=== PATIENT | male | born 1955 | race Caucasian/White ===

== ENCOUNTER → 2016-05-11 | Outpatient (CLI) | payer MEDICARE, BC ==
[2015-04-16 03:21] VITALS: BP 120/80
--- NOTE | 2016-05-14 09:28 | EKG ---
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
== END | disposition home or self-care (01) ==
LOC: EKG 10:39
PROVIDERS: ATTEND Internal Medicine Cardiovascular Disease
DX: I48.0 Paroxysmal atrial fibrillation (principal)
CPT/HCPCS: 93225; 93226

== ENCOUNTER 2017-01-22 12:16 | Emergency (ER) | payer OTHER, MEDICARE, BC ==
[~2017-01-22 12:16] MED LIST: ALLO100T PO; CARV12.52 PO; DILT180C29 PO; DOCU100C20 PO; FURO20TA3 PO; LORA1TAB PO; LOSA50TA6 PO; POTA20TA4 PO; PROVENTIL HFA6.7 GM IH; RANI150T6 PO; WARF10TA6 PO; WARF5TAB7 PO
[2017-01-22] MEDS ORDERED: fentaNYL PF VIAL 100 MCG/2 ML VIAL IV PRN (12:45)
[2017-01-22] MEDS ORDERED: HYDROcodone/APAP 5/325MG 1 TAB TABLET PO ONE (12:45)
[2017-01-22] MEDS ORDERED: HYDROcodone/APAP 5/325MG 1 TAB TABLET ONE (12:50)
[2017-01-22 13:16] LABS: BASO # 0.1 x10^3/uL (0.0-0.2); BASO % 1 % (0-3); EOS % 2 % (0-3); HEMATOCRIT 51.1 % (39.0-53.0); HEMOGLOBIN 17.3 g/dL (13.0-17.5); LYMPH # 2.4 x10^3/uL (1.0-4.8); LYMPH % 20 % (24-48); MEAN CORPUSCULAR HEMOGLOBIN 34 pg (25-35); MEAN CORPUSCULAR HGB CONC 34 g/dL (31-37); MEAN CORPUSCULAR VOLUME 101 fL (79-100); MONO % 6 % (0-9); NEUT % 71 % (31-73); PLATELET COUNT 212 x10^3/uL (140-400); RED BLOOD COUNT 5.07 x10^6/uL (4.30-5.70); RED CELL DISTRIBUTION WIDTH 13.8 % (11.5-14.5); WHITE BLOOD COUNT 12.1 x10^3/uL (4.0-11.0)
--- NOTE | 2017-01-22 13:19 | EKG ---
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
[2017-01-22 13:26] LABS: CALCIUM 8.9 mg/dL (8.5-10.1); CREATININE 1.4 mg/dL (0.7-1.3); GFR 51.9; POTASSIUM 4.6 mmol/L (3.5-5.1)
[2017-01-22 13:32] LABS: ALBUMIN 3.5 g/dL (3.4-5.0); ALBUMIN/GLOBULIN RATIO 0.8 (1.0-1.7); TOTAL BILIRUBIN 0.6 mg/dL (0.2-1.0); TOTAL PROTEIN 7.7 g/dL (6.4-8.2)
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
[2017-01-22 15:00] VITALS: BP 134/77
== END 2017-01-22 15:06 | disposition home or self-care (01) ==
LOC: ER 12:16
DX: S09.90XA Unspecified injury of head, initial encounter (principal); M54.2 Cervicalgia; R07.89 Other chest pain; M54.5 Low back pain; M54.6 Pain in thoracic spine; M25.531 Pain in right wrist; I11.0 Hypertensive heart disease with heart failure; I50.9 Heart failure, unspecified; I48.91 Unspecified atrial fibrillation; J44.9 Chronic obstructive pulmonary disease, unspecified; Z95.0 Presence of cardiac pacemaker; Z95.828 Presence of other vascular implants and grafts; Z79.01 Long term (current) use of anticoagulants; Z88.8 Allergy status to other drugs, medicaments and biological substances; V59.40XA Driver of pick-up truck or van injured in collision with unspecified motor vehicles in traffic accident, initial encounter; Y93.I9 Activity, other involving external motion; Y92.410 Unspecified street and highway as the place of occurrence of the external cause; Y99.8 Other external cause status
CPT/HCPCS: 36415; 70450; 71010; 72072; 72100; 72125; 73110; 80053; 84484; 85025; 93005; 99285-25

== ENCOUNTER → 2018-09-12 | Outpatient (CLI) | payer MEDICARE, BC ==
[~2018-09-12] MED LIST changes: +ALBU2.5V8 IH; +CARV12.511 PO; -CARV12.52 PO; +DOCU-159 PO; -DOCU100C20 PO; +LOSA-73 PO; -LOSA50TA6 PO; -PROVENTIL HFA6.7 GM IH; +RANI-376 PO; -RANI150T6 PO; +WARF-31 PO; +WARF10TA40 PO; -WARF10TA6 PO; -WARF5TAB7 PO
--- NOTE | 2018-09-12 12:39 | CARD ---
MR#: [id number] Date of Study: 09/12/2018 Ordering Physician: LALITHA SIERRA, Referring Physician: LALITHA SIERRA, Tech: Britt Tabor RD APPROVED REPORT EXAM: Two-dimensional and M-mode echocardiogram with Doppler and color Doppler. Other Information Quality : Fair Rhythm : Atrial Fibrillation INDICATION Dyspnea Pacemaker 2D DIMENSIONS RVDd2.6 (2.9-3.5cm)Left Atrium(2D)4.2 (1.6-4.0cm) IVSd0.9 (0.7-1.1cm)Aortic Root(2D)2.8 (2.0-3.7cm) LVDd5.5 (3.9-5.9cm)LVOT Diameter2.4 (1.8-2.4cm) PWd1.0 (0.7-1.1cm)LVDs3.9 (2.5-4.0cm) FS (%) 28.7 %SV80.4 ml LVEF(%)54.7 (>50%) Aortic Valve AoV Peak James.117.9cm/sAoV VTI19.5cm AO Peak GR.5.6mmHgLVOT Peak James.97.4cm/s LVOT VTI 18.71cmAO Mean GR.4mmHg RAIMUNDO (VMAX)3.48nu8KTC (VTI)4.34cm2 Mitral Valve MV E Rizpypvk63.5cm/sMV DECEL WRJN732vs MV EAX76xwBTV (PHT)4.29cm2 TDI E/Lateral E'21.7E/Medial E'20.1 Tricuspid Valve TR P. Uwihczrk947ik/sRAP TQPVOHAC1paVx TR Peak Gr.34qtEvARFU24bgAd Pulmonary Vein S1 [place]irk06.1cm/sD2 Lpnyxykf68.7cm/s LEFT VENTRICLE The left ventricle is normal size. There is normal left ventricular wall thickness. Left ventricle sy stolic function is low normal. The Ejection Fraction is 50-55%. There is normal LV segmental wall mot ion. RIGHT VENTRICLE The right ventricle is normal size. The right ventricular systolic function is normal. There are prob able device leads in the right ventricle and atria. ATRIA The left atrium is mildly dilated. The right atrium is mildly dilated. The interatrial septum is inta ct with no evidence for an atrial septal defect or patent foramen ovale as noted on 2-D or Doppler im aging. AORTIC VALVE The aortic valve is calcified but opens well. Doppler and Color Flow revealed no significant aortic r egurgitation. There is no significant aortic valvular stenosis. MITRAL VALVE The mitral valve is calcified but opens well. There is no evidence of mitral valve prolapse. There is no mitral valve stenosis. Doppler and Color-flow revealed mild mitral regurgitation. TRICUSPID VALVE The tricuspid valve is normal in structure and function. Doppler and Color Flow revealed trace to mil d tricuspid regurgitation. The PA pressure was estimated at 29 mmHg. There is no tricuspid valve sten osis. PULMONIC VALVE The pulmonic valve is not well visualized. Doppler and Color Flow revealed no pulmonic valvular regur gitation. There is no pulmonic valvular stenosis. GREAT VESSELS The aortic root is normal in size. The ascending aorta is mildly dilated at 3.6 cm. The IVC is normal in size and collapses >50% with inspiration. PERICARDIAL EFFUSION There is no evidence of significant pericardial effusion. Critical Notification Critical Value: No <Conclusion> The left ventricle is normal size. Left ventricle systolic function is low normal. The Ejection Fraction is 50-55%. There are probable device leads in the right ventricle and atria. There is no significant aortic valvular stenosis. Doppler and Color Flow revealed no significant aortic regurgitation. Doppler and Color-flow revealed mild mitral regurgitation. Doppler and Color Flow revealed trace to mild tricuspid regurgitation. The PA pressure was estimated at 29 mmHg. The ascending aorta is mildly dilated at 3.6 cm. Signed by : Lalitha Sierra MD Electronically Approved : 09/12/2018 12:39:14
== END | disposition home or self-care (01) ==
LOC: ECHO 10:47
PROVIDERS: ATTEND Internal Medicine Cardiovascular Disease
DX: I08.3 Combined rheumatic disorders of mitral, aortic and tricuspid valves (principal); I48.91 Unspecified atrial fibrillation; Z95.0 Presence of cardiac pacemaker
CPT/HCPCS: 93306

== ENCOUNTER → 2019-05-04 | Outpatient (CLI) | payer MEDICARE, BC ==
[~2019-05-04] MED LIST changes: -ALBU2.5V8 IH; +PROVENTIL HFA6.7 GM IH
--- NOTE | 2019-05-04 11:47 | RAD ---
CHEST PA LATERAL History: COPD, shortness of breath Comparison: 01/22/2017 AP view of the chest. Findings: Frontal and lateral views of chest were obtained. Single lead left-sided pacemaker is present. The cardiomediastinal silhouette is normal. Pulmonary vasculature is normal. The lungs are clear. Mild diffuse interstitial thickening of the lung mclean similar to the previous exam. No pleural effusion or pneumothorax is seen. There is no acute bone abnormality. Upper abdominal surgical clips are present. IMPRESSION: No focal infiltrate no significant change. Electronically signed by: Boogie Saavedra MD (05/04/2019 11:44 AM) [facility]
== END | disposition home or self-care (01) ==
LOC: RAD 10:11
PROVIDERS: ATTEND Internal Medicine Pulmonary Disease
DX: J44.9 Chronic obstructive pulmonary disease, unspecified (principal); Z95.0 Presence of cardiac pacemaker
CPT/HCPCS: 71046

== ENCOUNTER 2019-09-02 02:42 | Emergency (ER) | payer MEDICARE, BC ==
[~2019-09-02] VITALS: Ht 185.4 cm; Wt 148.0 kg
[2019-09-02] MEDS ORDERED: PRED20TA PO (03:26)
[2019-09-02] MEDS ORDERED: AZIT250T PO (03:26)
[2019-09-02] MEDS ORDERED: BENZ100C PO (03:26)
--- NOTE | 2019-09-02 03:26 | PHYS DOC ---
Past Medical History Past Medical History: CHF, COPD, Hypertension Past Surgical History: Appendectomy, Cholecystectomy, Pacemaker, Other Additional Past Surgical Histo: IVC FILTER Smoking Status: Current Every Day Smoker Alcohol Use: Sober Drug Use: None General Adult EDM: Chief Complaint: COUGH HPI: HPI: Patient is a 64 year old [f__sex] who presents with [] Review of Systems: Review of Systems: Constitutional: Denies fever or chills. [] Eyes: Denies change in visual acuity. [] HENT: Denies nasal congestion or sore throat. [] Respiratory: Denies cough or shortness of breath. [] Cardiovascular: Denies chest pain or edema. [] GI: Denies abdominal pain, nausea, vomiting, bloody stools or diarrhea. [] : Denies dysuria. [] Musculoskeletal: Denies back pain or joint pain. [] Integument: Denies rash. [] Neurologic: Denies headache, focal weakness or sensory changes. [] Endocrine: Denies polyuria or polydipsia. [] Lymphatic: Denies swollen glands. [] Psychiatric: Denies depression or anxiety. [] Heart Score: Risk Factors: Risk Factors: DM, Current or recent (<one month) smoker, HTN, HLP, family history of CAD, obesity. Risk Scores: Score 0 - 3: 2.5% MACE over next 6 weeks - Discharge Home Score 4 - 6: 20.3% MACE over next 6 weeks - Admit for Clinical Observation Score 7 - 10: 72.7% MACE over next 6 weeks - Early Invasive Strategies Current Medications: Current Medications Medications (Trade) Dose Ordered Sig/[facility] Start Time Stop Time Status Last Admin Dose Admin Dexamethasone (Decadron) 10 mg 1X ONCE 09/02/19 03:30 09/02/19 03:31 09/02/19 03:00 10 MG Allergies: Allergies: Allergies Coded Allergies Type Severity Reaction Last Updated Verified buprenorphine Allergy Intermediate 09/02/19 Yes Physical Exam: PE: Constitutional: Well developed, well nourished, no acute distress, non-toxic appearance. [] HENT: Normocephalic, atraumatic, bilateral external ears normal, oropharynx moist, no oral exudates, nose normal. [] Eyes: PERRLA, EOMI, conjunctiva normal, no discharge. [] Neck: Normal range of motion, no tenderness, supple, no stridor. [] Cardiovascular:Heart rate regular rhythm, no murmur [] Lungs & Thorax: Bilateral breath sounds clear to auscultation [] Abdomen: Bowel sounds normal, soft, no tenderness, no masses, no pulsatile masses. [] Skin: Warm, dry, no erythema, no rash. [] Back: No tenderness, no CVA tenderness. [] Extremities: No tenderness, no cyanosis, no clubbing, ROM intact, no edema. [] Neurologic: Alert and oriented X 3, normal motor function, normal sensory function, no focal deficits noted. [] Psychologic: Affect normal, judgement normal, mood normal. [] EKG: EKG: [] Radiology/Procedures: Radiology/Procedures: [] Course & Med Decision Making: Course & Med Decision Making Pertinent Labs and Imaging studies reviewed. (See chart for details) [] Dragon Disclaimer: Dragon Disclaimer: This electronic medical record was generated, in whole or in part, using a voice recognition dictation system. Departure Departure Impression: Primary Impression: Bronchitis Disposition: 01 HOME, SELF-CARE Condition: STABLE Referrals: ANGEL MULLINS MD (PCP) ANGIE PARK MD Patient Instructions: Acute Bronchitis, Wkmf-hw-[id number] Additional Instructions: Hold antibiotics for 48 hours. If symptoms worsen or for fever > 100.3 F after 48 hours then start antibiotics as prescribed. Scripts Benzonatate (TESSALON PERLE) 100 Mg Capsule 100 MG PO TID PRN for COUGH, #20 CAP Prov: ANAID DONOVAN DO 09/02/19 Prednisone (PREDNISONE) 20 Mg Tablet 2 TAB PO DAILY, #8 TAB Start this prescription tomorrow, Wednesday09/03/19 Prov: ANAID DONOVAN DO 09/02/19 Azithromycin (ZITHROMAX) 250 Mg Tablet 1 PKG PO UD for bronchitis, #6 TAB Take 2 tablets on day 1 and then 1 tablet each day for the next 4 days as directed Prov: ANAID DONOVAN DO 09/02/19 Justicifation of Admission Dx: Justifications for Admission: Justification of Admission Dx: N/A ANAID DONOVAN DO Sep 02, 2019 03:26
[2019-09-02] MEDS ORDERED: DEXAMETHASONE 4 MG TABLET PO ONE (03:30)
[2019-09-02] MEDS ORDERED: LIDO:MAALOX 1:1 20 ML SINGLE DOSE. PO ONE (03:45)
[2019-09-02 03:49] VITALS: BP 184/71
--- NOTE | 2019-09-02 04:11 | RAD ---
EXAM: CHEST ONE VIEW. HISTORY: Cough. COMPARISON: 05/04/2019. FINDINGS: A frontal view of the chest is obtained. A left-sided pacemaker has its lead in the right ventricle. There are no confluent infiltrates. There is no pneumothorax or pleural effusion. The heart is not enlarged. IMPRESSION: 1. No confluent infiltrates. Electronically signed by: Farida Salamanca MD (09/02/2019 4:08 AM) [facility]
== END 2019-09-02 04:04 | disposition home or self-care (01) ==
LOC: ER 02:42
DX: J44.9 Chronic obstructive pulmonary disease, unspecified (principal); I11.0 Hypertensive heart disease with heart failure; I50.9 Heart failure, unspecified; F17.200 Nicotine dependence, unspecified, uncomplicated; Z95.0 Presence of cardiac pacemaker; Z88.8 Allergy status to other drugs, medicaments and biological substances
CPT/HCPCS: 71045; 96372; 99284; J2060; J8540

== ENCOUNTER 2019-09-18 11:45 | Inpatient (IN) | payer MEDICARE, BC ==
[~2019-09-18] VITALS: Ht 185.4 cm; Wt 142.8 kg
[~2019-09-18 11:45] MED LIST changes: +AZIT250T PO; +BENZ100C PO; +PRED20TA PO
[2019-09-18] MEDS ORDERED: fentaNYL PF VIAL 100 MCG/2 ML VIAL IVP ONE (14:15)
--- NOTE | 2019-09-18 14:25 | RAD ---
AP chest. HISTORY: Flank pain, nausea, short of air AP view was taken of the chest. Lungs are clear. Heart is normal in size. There is no effusion. Left pacemaker is unchanged. IMPRESSION: 1. No acute chest disease. Electronically signed by: Bryon Gonzalez MD (09/18/2019 2:22 PM) [facility]
--- NOTE | 2019-09-18 14:31 | RAD ---
PQRS Compliance Statement: One or more of the following individualized dose reduction techniques were utilized for this examination: 1. Automated exposure control 2. Adjustment of the mA and/or kV according to patient size 3. Use of iterative reconstruction technique CT abdomen/pelvis without contrast 09/18/2019 1:59 PM INDICATION: Flank pain COMPARISON: CT abdomen/pelvis 12/07/2012 TECHNIQUE: Multiple axial CT images of the abdomen and pelvis were obtained without intravenous contrast. Coronal and sagittal reformats are provided. FINDINGS: Lung bases are clear. Heart size within normal limits. Right pacer wires are partially profiled. Evaluation of solid abdominal viscera is limited by lack of intravenous contrast. Liver, spleen, bilateral adrenal glands and pancreas are normal in appearance. Gallbladder surgically absent. Normal aorta is normal in course and caliber with mild calcified atheromatous plaque. 2.7 x 2.3 cm renal lesion in the lateral and flow left kidney has attenuation higher than that of simple fluid. 10 cm x 9.7 cm hypoattenuating lesion in the lateral interpolar right kidney may represent a cyst although density appears head that of simple fluid. Is a fat-containing lesion in inferior pole the right kidney measuring 12 mm suggestive of angiomyolipoma. There is hazy attenuation within the right retroperitoneum which does course along the right ureter. There is ill-definition along the right psoas musculature. There is mild bladder wall thickening and pericystic inflammatory changes. Minimal presacral edema. Small and large bowel are normal in caliber. There is no evidence for bowel obstruction. There are no pericolonic inflammatory changes. Appendix is not definitively visualized. No pericecal inflammatory changes are identified. Bilateral flank edema is identified. No definite hydronephrosis. IVC filter is present. No suspicious osseous abnormality. Small fat-containing left inguinal hernia. Prostate and seminal vesicles appear normal. IMPRESSION: 1. Ill-defined retroperitoneal soft tissue formation involving the lower abdomen and right hemipelvis. Findings could be associated with right-sided pyelitis. [place] inflammation. Resultant similar appearance although there is no iliopsoas fluid collection. IVC filter is present and thrombophlebitis is a consideration although inflammation is more anterior to the IVC. Consideration may be given for postcontrast imaging. Correlate with urinalysis. 2. There is a indeterminate lateral interpolar left renal lesion measuring 2.7 x 2.3 cm. Renal mass protocol CT could be of benefit versus renal ultrasound. Hypoattenuating lesion in the lateral interpolar to superior right kidney measuring 10 cm most favors a simple cyst. Suspect an angiomyolipoma in inferior pole the right kidney measuring 12 mm. Electronically signed by: Vanna Courtney MD (09/18/2019 2:29 PM) [facility]
[2019-09-18] MEDS ORDERED: ONDANSETRON PF 4 MG/2 ML VIAL. ONE (14:42)
[2019-09-18 15:42] LABS: BILIRUBIN,URINE SMALL (NEG); CLARITY,URINE CLEAR; COLOR,URINE ORANGE; NITRITE,URINE NEGATIVE (NEG); PH,URINE 5.5 (<5.0-8.0); PROTEIN,URINE 100 mg/dL (NEG-TRACE)
[2019-09-18 15:48] LABS: BASO # 0.1 x10^3/uL (0.0-0.2); BASO % 1 % (0-3); EOS # 1.3 x10^3/uL (0.0-0.7); EOS % 11 % (0-3); HEMOGLOBIN 16.2 g/dL (13.0-17.5); LYMPH # 1.4 x10^3/uL (1.0-4.8); LYMPH % 12 % (24-48); MEAN CORPUSCULAR HEMOGLOBIN 35 pg (25-35); MEAN CORPUSCULAR HGB CONC 35 g/dL (31-37); MEAN CORPUSCULAR VOLUME 100 fL (79-100); MONO # 0.7 x10^3/uL (0.0-1.1); MONO % 6 % (0-9); NEUT # 8.1 x10^3/uL (1.8-7.7); NEUT % 71 % (31-73); PLATELET COUNT 173 x10^3/uL (140-400); WHITE BLOOD COUNT 11.5 x10^3/uL (4.0-11.0)
[2019-09-18 15:52] LABS: BACTERIA,URINE 0 /HPF (0-FEW); HYALINE CASTS, URINE FEW /HPF; PROTHROMBIN TIME PATIENT 18.1 SEC (11.7-14.0); RBC,URINE 0 /HPF (0-2); WBC,URINE RARE /HPF (0-4)
[2019-09-18 15:56] LABS: ALBUMIN 3.7 g/dL (3.4-5.0); DIRECT BILIRUBIN 0.4 mg/dL (0.0-0.2); TOTAL BILIRUBIN 1.3 mg/dL (0.2-1.0); TOTAL PROTEIN 7.9 g/dL (6.4-8.2)
--- NOTE | 2019-09-18 16:05 | RAD ---
Examination: Bilateral Lower Extremity Venous Doppler Ultrasound History: Bilateral lower extremity swelling Comparison: None Procedure: Damon scale, color flow 2D and spectal waveform analysis images are obtained with and without compression in the area of the common femoral vein, superficial femoral vein - femoral vein junction, main femoral vein (superficial femoral vein) and popliteal vein. Veins of the proximal calf are also imaged. Findings: Occlusive echogenicity identified in the right common femoral vein, superficial femoral and right popliteal vein likely deep venous thrombosis. There is nonoccluding echogenicity identified in the left superficial femoral vein from the mid and distal portion extending into the left popliteal vein likely deep venous thrombosis. Impression: 1. Bilateral deep venous thrombosis as described above. Findings called to [facility] at 09/18/2019 4:02 PM. Electronically signed by: Ruddy dAorno MD (09/18/2019 4:02 PM) [id number]
[2019-09-18 16:10] LABS: % EOS 13 % (0-5); % LYMPHS 17 % (24-48); % MONOS 3 % (0-10); % SEGS 67 % (35-66); PLT ESTIMATE ADEQUATE (ADEQUATE)
[2019-09-18 16:40] LABS: CALCIUM 8.7 mg/dL (8.5-10.1); CREATININE 1.7 mg/dL (0.7-1.3); POTASSIUM 5.6 mmol/L (3.5-5.1)
[2019-09-18] MEDS ORDERED: ONDANSETRON PF 4 MG/2 ML VIAL. IV PRN ×2 (16:45→22:00)
[2019-09-18] MEDS ORDERED: HEPARIN for IV BOLUS 10,000 UNIT/10 ML VIAL. IV PRN ×2 (17:00)
--- NOTE | 2019-09-18 17:05 | PHYS DOC ---
Past Medical History Past Medical History: CHF, COPD, Hypertension Past Surgical History: Appendectomy, Cholecystectomy, Pacemaker, Other Additional Past Surgical Histo: IVC FILTER Smoking Status: Current Every Day Smoker Alcohol Use: None Drug Use: None General Adult EDM: Chief Complaint: GROIN PAIN HPI: HPI: Patient is a 64 year old male who presents with bilateral lower leg swelling and pain. See downtime paper charting. Review of Systems: Review of Systems: Constitutional: Denies fever or chills. [] Eyes: Denies change in visual acuity. [] HENT: Denies nasal congestion or sore throat. [] Respiratory: Denies cough or shortness of breath. [] Cardiovascular: Denies chest pain or edema. [] GI: Denies abdominal pain, nausea, vomiting, bloody stools or diarrhea. [] : Denies dysuria. [] Musculoskeletal: Denies back pain or joint pain. [] Integument: Denies rash. [] Neurologic: Denies headache, focal weakness or sensory changes. [] Endocrine: Denies polyuria or polydipsia. [] Lymphatic: Denies swollen glands. [] Psychiatric: Denies depression or anxiety. [] Heart Score: HEART Score for Chest Pain: HEART Score for Chest Pain Response (Comments) Value History Slighlty/Non-Suspicious 0 ECG Nonspecific Repolarizatio 1 Age >45 - < 65 1 Risk Factors >3 Risk Factors or Hx CAD 2 Troponin < Normal Limit 0 Total 4 Risk Factors: Risk Factors: DM, Current or recent (<one month) smoker, HTN, HLP, family history of CAD, obesity. Risk Scores: Score 0 - 3: 2.5% MACE over next 6 weeks - Discharge Home Score 4 - 6: 20.3% MACE over next 6 weeks - Admit for Clinical Observation Score 7 - 10: 72.7% MACE over next 6 weeks - Early Invasive Strategies Current Medications: Current Medications Medications (Trade) Dose Ordered Sig/Félix Start Time Stop Time Status Last Admin Dose Admin Fentanyl Citrate (Fentanyl 2ml Vial) 50 mcg PRN Q1HR PRN 09/18/19 16:45 09/19/19 16:44 Heparin Sodium (Porcine) (Heparin Sodium) 2,150 unit PRN Q6HRS PRN 09/18/19 17:00 Heparin Sodium/ Dextrose 250 ml @ 20 mls/hr CONT PRN 09/18/19 17:00 Ondansetron HCl (Zofran) 4 mg PRN Q8HRS PRN 09/18/19 16:45 09/19/19 16:44 Allergies: Allergies: Allergies Coded Allergies Type Severity Reaction Last Updated Verified buprenorphine Allergy Intermediate 09/02/19 Yes Physical Exam: PE: Constitutional: Well developed, well nourished, no acute distress, non-toxic appearance. [] HENT: Normocephalic, atraumatic, bilateral external ears normal, oropharynx moist, no oral exudates, nose normal. [] Eyes: PERRLA, EOMI, conjunctiva normal, no discharge. [] Neck: Normal range of motion, no tenderness, supple, no stridor. [] Cardiovascular:Heart rate regular rhythm, no murmur [] Lungs & Thorax: Bilateral breath sounds clear to auscultation [] Abdomen: Bowel sounds normal, soft, no tenderness, no masses, no pulsatile masses. [] Skin: Warm, dry, no erythema, no rash. [] Back: No tenderness, no CVA tenderness. [] Extremities: No tenderness, no cyanosis, no clubbing, ROM intact, no edema. [] Neurologic: Alert and oriented X 3, normal motor function, normal sensory function, no focal deficits noted. [] Psychologic: Affect normal, judgement normal, mood normal. [] Current Patient Data: Labs: Laboratory Tests Test 09/18/19 13:50 White Blood Count 11.5 x10^3/uL (4.0-11.0) H Red Blood Count 4.60 x10^6/uL (4.30-5.70) Hemoglobin 16.2 g/dL (13.0-17.5) Hematocrit 46.0 % (39.0-53.0) Mean Corpuscular Volume 100 fL (79-100) Mean Corpuscular Hemoglobin 35 pg (25-35) Mean Corpuscular Hemoglobin Concent 35 g/dL (31-37) Red Cell Distribution Width 14.0 % (11.5-14.5) Platelet Count 173 x10^3/uL (140-400) Neutrophils (%) (Auto) 71 % (31-73) Lymphocytes (%) (Auto) 12 % (24-48) L Monocytes (%) (Auto) 6 % (0-9) Eosinophils (%) (Auto) 11 % (0-3) H Basophils (%) (Auto) 1 % (0-3) Neutrophils # (Auto) 8.1 x10^3/uL (1.8-7.7) H Lymphocytes # (Auto) 1.4 x10^3/uL (1.0-4.8) Monocytes # (Auto) 0.7 x10^3/uL (0.0-1.1) Eosinophils # (Auto) 1.3 x10^3/uL (0.0-0.7) H Basophils # (Auto) 0.1 x10^3/uL (0.0-0.2) Segmented Neutrophils % 67 % (35-66) H Lymphocytes % 17 % (24-48) L Monocytes % 3 % (0-10) Eosinophils % 13 % (0-5) H Platelet Estimate Adequate (ADEQUATE) Prothrombin Time 18.1 SEC (11.7-14.0) H Prothrombin Time INR 1.5 (0.8-1.1) H Activated Partial Thromboplast Time 35 SEC (24-38) Urine Collection Type Unknown Urine Color Rich Urine Clarity Clear Urine pH 5.5 (<5.0-8.0) Urine Specific [place] 1.025 (1.000-1.030) Urine Protein 100 mg/dL (NEG-TRACE) Urine Glucose (UA) 250 mg/dL (NEG) Urine Ketones (Stick) Trace mg/dL (NEG) Urine Blood Negative (NEG) Urine Nitrite Negative (NEG) Urine Bilirubin Small (NEG) Urine Urobilinogen Dipstick 1.0 mg/dL (0.2 mg/dL) Urine Leukocyte Esterase Trace (NEG) Urine RBC 0 /HPF (0-2) Urine WBC Rare /HPF (0-4) Urine Bacteria 0 /HPF (0-FEW) Urine Hyaline Casts Few /HPF Urine Mucus Mod /LPF Total Bilirubin 1.3 mg/dL (0.2-1.0) H Direct Bilirubin 0.4 mg/dL (0.0-0.2) H Aspartate Amino Transferase (AST) 17 U/L (15-37) Alanine Aminotransferase (ALT) 28 U/L (16-63) Alkaline Phosphatase 101 U/L (46-116) Troponin I Quantitative < 0.017 ng/mL (0.000-0.055) KS-Ryp-Y-Type Natriuretic Peptide 783 pg/mL (0-124) H Total Protein 7.9 g/dL (6.4-8.2) Albumin 3.7 g/dL (3.4-5.0) Lipase 110 U/L (73-393) Laboratory Tests 09/18/19 13:50 Vital Signs: Vital Signs Date Time Temp Pulse Resp B/P (MAP) Pulse Ox O2 Delivery O2 Flow Rate FiO2 09/18/19 14:47 18 97 Room Air 09/18/19 13:25 98.3 102 138/83 (101) 98.3 EKG: EKG: [] Radiology/Procedures: Radiology/Procedures: [] Course & Med Decision Making: Course & Med Decision Making Pertinent Labs and Imaging studies reviewed. (See chart for details) See paper charting. [] Dragon Disclaimer: Dragon Disclaimer: This electronic medical record was generated, in whole or in part, using a voice recognition dictation system. Departure Departure Impression: Primary Impression: DVT, bilateral lower limbs Qualified Codes: I82.403 - Acute embolism and thrombosis of unspecified deep veins of lower extremity, bilateral Disposition: ADMITTED INPATIENT Admitting Physician: BERT Condition: STABLE Referrals: ANGEL MULLINS MD (PCP) Justicifation of Admission Dx: Justifications for Admission: Justification of Admission Dx: Yes Comments: dvt NANDA MENDOZA [employer] Sep 18, 2019 17:05
--- NOTE | 2019-09-18 17:09 | PDOC1 ---
History and Physical Date of Admission Date of Admission DATE: 09/18/19 TIME: 17:06 Identification/Chief Complaint Chief Complaint Leg swelling Source Source: Patient History of Present Illness History of Present Illness Mr Gruber is a 64yo M [employer] with PMHx HTN, CHF, COPD, smoker, DVT s/p IVC filter in 1990 on chronic coumadin who comes into ED today c/o bilateral LE edema that has been progressive over the past month. He also notes over the past 7 days he has been developing right leg and groin pain with some right flank pain as well. Rates his pain 10/10. No fever/chills. No recent sick contacts. He notes he has had INR 1.3-1.5 and is "working on it" with his PCP to have therapeutic INR, previously on 10mg 4 days per week and 15mg coumadin 3 days per week now on 5mg daily. He also notes he has been trying to quit smoking for the past 4 months on chantix, but still continues to smoke. Bilateral LE US reveals extensive bilateral DVTs. CT abdomen/pelvis shows bladder wall inflammation and right sided pyelitis, also with ill-defined bilateral renal lesions. UA with small leukocyte esterase, glucose. CXR clear Labs significant for Na 131, K 5.6, BUN 27, Cr 1.7, glucose 205, INR 1.5, bilirubin 1.3. BNP 783, troponin negative. EKG with prolonged [place] interval, sinus compared to prior Afib in 2017. Admitted for further care Past Medical History Cardiovascular: AFIB, CHF, HTN, Syncope Pulmonary: COPD Past Surgical History Past Surgical History: Pacemaker, Appendectomy, Cholecystectomy, Other (IVC filter) Family History Family History: High Cholestrol, Hypertension Social History Smoke: 1 pack per day ALCOHOL: none Drugs: None Current Problem List Problem List Problems Medical Problems: (1) DVT, bilateral lower limbs Status: Acute Current Medications Current Medications Current Medications Fentanyl Citrate (Fentanyl 2ml Vial) 50 mcg 1X ONCE IVP Last administered on 09/18/19at 14:47; Start 09/18/19 at 14:15; Stop 09/18/19 at 14:22; Status DC Ondansetron HCl (Zofran) 4 mg STK-MED ONCE .ROUTE ; Start 09/18/19 at 14:42; Stop 09/18/19 at 14:42; Status DC Heparin Sodium (Porcine) (Heparin Sodium) 10,000 unit 1X ONCE IV ; Start 09/18/19 at 19:45; Stop 09/18/19 at 19:46 Heparin Sodium/ Dextrose 250 ml @ 20 mls/hr CONT PRN IV PER PROTOCOL; Start 09/18/19 at 17:00 Heparin Sodium (Porcine) (Heparin Sodium) 4,250 unit PRN Q6HRS PRN IV FOR UFH LEVEL LESS THAN 0.2; Start 09/18/19 at 17:00 Heparin Sodium (Porcine) (Heparin Sodium) 2,150 unit PRN Q6HRS PRN IV FOR UFH LEVEL 0.2 - 0.29; Start 09/18/19 at 17:00 Ondansetron HCl (Zofran) 4 mg PRN Q8HRS PRN IV NAUSEA/VOMITING; Start 09/18/19 at 16:45; Stop 09/19/19 at 16:44 Fentanyl Citrate (Fentanyl 2ml Vial) 50 mcg PRN Q1HR PRN IV PAIN; Start 09/18/19 at 16:45; Stop 09/19/19 at 16:44 Active Scripts Active Tessalon Perle (Benzonatate) 100 Mg Capsule 100 Mg PO TID PRN Prednisone 20 Mg Tablet 2 Tab PO DAILY Start this prescription tomorrow, Wednesday09/03/19 Zithromax (Azithromycin) 250 Mg Tablet 1 Pkg PO UD Take 2 tablets on day 1 and then 1 tablet each day for the next 4 days as directed Reported Carvedilol (Carvedilol) 12.5 Mg Tablet 1 Tab PO BID Losartan Potassium 50 Mg Tablet 50 Mg PO DAILY Klor-Con M20 (Potassium Chloride) 20 Meq Tab.er.prt 1 Tab PO 3X/WEEK Furosemide 20 Mg Tablet 1 Tab PO 3X/WEEK Warfarin Sodium 10 Mg Tablet 10 Mg PO WEEKLY 5 Days Warfarin Sodium 5 Mg Tablet 1 Tab PO TWICE WEEKLY Diltiazem 24HR Cd (Diltiazem Hcl) 180 Mg Cap.er.24h 2 Cap PO DAILY Proventil Hfa Inhaler (Albuterol Sulfate) 6.7 Gm Hfa.aer.ad 2 Puff IH DAILY PRN Doc-Q-Lace (Docusate Sodium) 100 Mg Capsule 100 Mg PO DAILY PRN Zantac (Ranitidine Hcl) 150 Mg Tablet 1 Tab PO DAILY Lorazepam 1 Mg Tablet 1 Tab PO BID Allopurinol 100 Mg Tablet 1 Tab PO DAILY Allergies Allergies: Coded Allergies: buprenorphine (Verified Allergy, Intermediate, 09/02/19) ROS General: YES: Fatigue, Malaise; No: Chills, Night Sweats, Appetite, Other PSYCHOLOGICAL ROS: YES: Anxiety; No: Behavioral Disorder, Concentration difficultie, Decreased libido, Depression, Disorientation, Hallucinations, Hostility, Irritablity, Memory difficulties, Mood Swings, Obsessive thoughts, Physical abuse, Sexual abuse, Sleep disturbances, Suicidal ideation, Other Eyes: No Blurry vision, No Decreased vision, No Double vision, No Dry eyes, No Excessive tearing, No Eye Pain, No Itchy Eyes, No Loss of vision, No Photophobia, No Scotomata, No Uses contacts, No Uses glasses, No Other HEENT: No: Heacaches, Visual Changes, Hearing change, Nasal congestion, Nasal discharge, Oral lesions, Sinus pain, Sore Throat, Epistaxis, Sneezing, Snoring, Tinnitus, Vertigo, Vocal changes, Other ALLERGY AND IMMUNOLOGY: No: Hives, Insect Bite Sensitivity, Itchy/Watery Eyes, Nasal Congestion, Post Nasal Drip, Seasonal Allergies, Other Hematological and Lymphatic: YES: Blood Clots; No: Bleeding Problems, Blood Transfusions, Brusing, Night Sweats, Pallor, Swollen Lymph Nodes, Other ENDOCRINE: No: Breast Changes, Galactorrhea, Hair Pattern Changes, Hot Flashes, Malaise/lethargy, Mood Swings, Palpitations, Polydipsia/polyuria, Skin Changes, Temperature Intolerance, Unexpected Weight Changes, Other Breast: No New/Changing Breast Lumps, No Nipple changes, No Nipple discharge, No Other Respiratory: No: Cough, Hemoptysis, Orthopnea, Pleuritic Pain, Shortness of breath, SOB with excertion, Sputum Changes, Stridor, Tachypnea, Wheezing, Other Cardiovascular: yes Edema; No Chest Pain, No Palpitations, No Orthopnea, No Paroxysmal Noc. Dyspnea, No Lt Headedness, No Other Gastrointestinal: Yes Abdominal Pain; No Nausea, No Vomiting, No Diarrhea, No Constipation, No Melena, No Hematochezia, No Other Genitourinary: YES Dysuria; No Frequency, No Incontinence, No Hematuria, No Retention, No Discharge, No Urgency, No Pain, No Flank Pain, No Other, No , No , No , No , No , No , No Musculoskeletal: Yes Muscle Pain; No Gait Disturbance, No Joint Pain, No Joint Stiffness, No Joint Swelling, No Muscular Weakness, No Pain In:, No Swelling In:, No Other Neurological: No Behavorial Changes, No Bowel/Bladder ControlChng, No Confusi on, No Dizziness, No Gait Disturbance, No Headaches, No Impaired Coord/balance, No Memory Loss, No Numbness/Tingling, No Seizures, No Speech Problems, No Tremors, No Visual Changes, No Weakness, No Other Skin: Yes Rash; No Dry Skin, No Eczema, No Hair Changes, No Lumps, No Mole Changes, No Mottling, No Nail Changes, No Pruritus, No Skin Lesion Changes, No Other, No Acne Physical Exam General: Alert, Oriented X3, Cooperative, mild distress HEENT: Atraumatic, PERRLA, EOMI, Mucous membr. moist/pink Lungs: Other (Diffuse wheezes) Heart: S1S2, RRR, no thrills, no rubs Abdomen: Normal bowel sounds, Soft, No hepatosplenomegaly, No masses, Other (Right flank pain) Rectal Exam: not examined Extremities: No clubbing, No cyanosis, Normal pulses, Other (3+ edema bilaterally, tender swollen) Skin: Other (Stasis dermatitis bilateral LE) Neuro: Normal gait, Normal speech, Strength at 5/5 X4 ext, Normal tone, Sensation intact, Cranial nerves 3-12 NL, Reflexes 2+ Psych/Mental Status: Mental status NL, Mood NL Vitals Vitals Vital Signs Date Time Temp Pulse Resp B/P (MAP) Pulse Ox O2 Delivery O2 Flow Rate FiO2 09/18/19 14:47 18 97 Room Air 09/18/19 13:25 98.3 102 138/83 (101) 98.3 Labs Labs Laboratory Tests Test 09/18/19 13:50 White Blood Count 11.5 x10^3/uL (4.0-11.0) Red Blood Count 4.60 x10^6/uL (4.30-5.70) Hemoglobin 16.2 g/dL (13.0-17.5) Hematocrit 46.0 % (39.0-53.0) Mean Corpuscular Volume 100 fL (79-100) Mean Corpuscular Hemoglobin 35 pg (25-35) Mean Corpuscular Hemoglobin Concent 35 g/dL (31-37) Red Cell Distribution Width 14.0 % (11.5-14.5) Platelet Count 173 x10^3/uL (140-400) Neutrophils (%) (Auto) 71 % (31-73) Lymphocytes (%) (Auto) 12 % (24-48) Monocytes (%) (Auto) 6 % (0-9) Eosinophils (%) (Auto) 11 % (0-3) Basophils (%) (Auto) 1 % (0-3) Neutrophils # (Auto) 8.1 x10^3/uL (1.8-7.7) Lymphocytes # (Auto) 1.4 x10^3/uL (1.0-4.8) Monocytes # (Auto) 0.7 x10^3/uL (0.0-1.1) Eosinophils # (Auto) 1.3 x10^3/uL (0.0-0.7) Basophils # (Auto) 0.1 x10^3/uL (0.0-0.2) Segmented Neutrophils % 67 % (35-66) Lymphocytes % 17 % (24-48) Monocytes % 3 % (0-10) Eosinophils % 13 % (0-5) Platelet Estimate Adequate (ADEQUATE) Prothrombin Time 18.1 SEC (11.7-14.0) Prothromb Time International Ratio 1.5 (0.8-1.1) Activated Partial Thromboplast Time 35 SEC (24-38) Urine Collection Type Unknown Urine Color [place] Urine Clarity Clear Urine pH 5.5 (<5.0-8.0) Urine Specific [place] 1.025 (1.000-1.030) Urine Protein 100 mg/dL (NEG-TRACE) Urine Glucose (UA) 250 mg/dL (NEG) Urine Ketones (Stick) Trace mg/dL (NEG) Urine Blood Negative (NEG) Urine Nitrite Negative (NEG) Urine Bilirubin Small (NEG) Urine Urobilinogen Dipstick 1.0 mg/dL (0.2 mg/dL) Urine Leukocyte Esterase Trace (NEG) Urine RBC 0 /HPF (0-2) Urine WBC Rare /HPF (0-4) Urine Bacteria 0 /HPF (0-FEW) Urine Hyaline Casts Few /HPF Urine Mucus Mod /LPF Total Bilirubin 1.3 mg/dL (0.2-1.0) Direct Bilirubin 0.4 mg/dL (0.0-0.2) Aspartate Amino Transf (AST/SGOT) 17 U/L (15-37) Alanine Aminotransferase (ALT/SGPT) 28 U/L (16-63) Alkaline Phosphatase 101 U/L (46-116) Troponin I Quantitative < 0.017 ng/mL (0.000-0.055) NB-Lbf-Q-Type Natriuretic Peptide 783 pg/mL (0-124) Total Protein 7.9 g/dL (6.4-8.2) Albumin 3.7 g/dL (3.4-5.0) Lipase 110 U/L (73-393) Laboratory Tests Test 09/18/19 13:50 White Blood Count 11.5 x10^3/uL (4.0-11.0) Red Blood Count 4.60 x10^6/uL (4.30-5.70) Hemoglobin 16.2 g/dL (13.0-17.5) Hematocrit 46.0 % (39.0-53.0) Mean Corpuscular Volume 100 fL (79-100) Mean Corpuscular Hemoglobin 35 pg (25-35) Mean Corpuscular Hemoglobin Concent 35 g/dL (31-37) Red Cell Distribution Width 14.0 % (11.5-14.5) Platelet Count 173 x10^3/uL (140-400) Neutrophils (%) (Auto) 71 % (31-73) Lymphocytes (%) (Auto) 12 % (24-48) Monocytes (%) (Auto) 6 % (0-9) Eosinophils (%) (Auto) 11 % (0-3) Basophils (%) (Auto) 1 % (0-3) Neutrophils # (Auto) 8.1 x10^3/uL (1.8-7.7) Lymphocytes # (Auto) 1.4 x10^3/uL (1.0-4.8) Monocytes # (Auto) 0.7 x10^3/uL (0.0-1.1) Eosinophils # (Auto) 1.3 x10^3/uL (0.0-0.7) Basophils # (Auto) 0.1 x10^3/uL (0.0-0.2) Segmented Neutrophils % 67 % (35-66) Lymphocytes % 17 % (24-48) Monocytes % 3 % (0-10) Eosinophils % 13 % (0-5) Platelet Estimate Adequate (ADEQUATE) Prothrombin Time 18.1 SEC (11.7-14.0) Prothromb Time International Ratio 1.5 (0.8-1.1) Activated Partial Thromboplast Time 35 SEC (24-38) Urine Collection Type Unknown Urine Color [place] Urine Clarity Clear Urine pH 5.5 (<5.0-8.0) Urine Specific [place] 1.025 (1.000-1.030) Urine Protein 100 mg/dL (NEG-TRACE) Urine Glucose (UA) 250 mg/dL (NEG) Urine Ketones (Stick) Trace mg/dL (NEG) Urine Blood Negative (NEG) Urine Nitrite Negative (NEG) Urine Bilirubin Small (NEG) Urine Urobilinogen Dipstick 1.0 mg/dL (0.2 mg/dL) Urine Leukocyte Esterase Trace (NEG) Urine RBC 0 /HPF (0-2) Urine WBC Rare /HPF (0-4) Urine Bacteria 0 /HPF (0-FEW) Urine Hyaline Casts Few /HPF Urine Mucus Mod /LPF Total Bilirubin 1.3 mg/dL (0.2-1.0) Direct Bilirubin 0.4 mg/dL (0.0-0.2) Aspartate Amino Transf (AST/SGOT) 17 U/L (15-37) Alanine Aminotransferase (ALT/SGPT) 28 U/L (16-63) Alkaline Phosphatase 101 U/L (46-116) Troponin I Quantitative < 0.017 ng/mL (0.000-0.055) AE-Zls-H-Type Natriuretic Peptide 783 pg/mL (0-124) Total Protein 7.9 g/dL (6.4-8.2) Albumin 3.7 g/dL (3.4-5.0) Lipase 110 U/L (73-393) Images Images Bilateral Venous US Lower extremities: Occlusive echogenicity identified in the right common femoral vein, superficial femoral and right popliteal vein likely deep venous thrombosis. There is nonoccluding echogenicity identified in the left superficial femoral vein from the mid and distal portion extending into the left popliteal vein likely deep venous thrombosis. Impression: 1. Bilateral deep venous thrombosis as described above. CT abdomen/pelvis: Lung bases are clear. Heart size within normal limits. Right pacer wires are partially profiled. Evaluation of solid abdominal viscera is limited by lack of intravenous contrast. Liver, spleen, bilateral adrenal glands and pancreas are normal in appearance. Gallbladder surgically absent. Normal aorta is normal in course and caliber with mild calcified atheromatous plaque. 2.7 x 2.3 cm renal lesion in the lateral and flow left kidney has attenuation higher than that of simple fluid. 10 cm x 9.7 cm hypoattenuating lesion in the lateral interpolar right kidney may represent a cyst although density appears head that of simple fluid. Is a fat-containing lesion in inferior pole the right kidney measuring 12 mm suggestive of angiomyolipoma. There is hazy attenuation within the right retroperitoneum which does course along the right ureter. There is ill-definition along the right psoas musculature. There is mild bladder wall thickening and pericystic inflammatory changes. Minimal presacral edema. Small and large bowel are normal in caliber. There is no evidence for bowel obstruction. There are no pericolonic inflammatory changes. Appendix is not definitively visualized. No pericecal inflammatory changes are identified. Bilateral flank edema is identified. No definite hydronephrosis. IVC filter is present. No suspicious osseous abnormality. Small fat-containing left inguinal hernia. Prostate and seminal vesicles appear normal. IMPRESSION: 1. Ill-defined retroperitoneal soft tissue formation involving the lower abdomen and right hemipelvis. Findings could be associated with right-sided pyelitis. [place] inflammation. Resultant similar appearance although there is no iliops oas fluid collection. IVC filter is present and thrombophlebitis is a consideration although inflammation is more anterior to the IVC. Consideration may be given for postcontrast imaging. Correlate with urinalysis. 2. There is a indeterminate lateral interpolar left renal lesion measuring 2.7 x 2.3 cm. Renal mass protocol CT could be of benefit versus renal ultrasound. Hypoattenuating lesion in the lateral interpolar to superior right kidney measuring 10 cm most favors a simple cyst. Suspect an angiomyolipoma in inferior pole the right kidney measuring 12 mm. VTE Prophylaxis Ordered VTE Prophylaxis Devices: Contraindicated VTE Pharmacological Prophylaxi: Yes Assessment/Plan Assessment/Plan A/P: Bilateral lower extremity DVTs - with subtherapeutic INR, will start heparin GTT, bridge back on coumadin. Consult cardiology for h/o afib Hyponatremia - will give NSS. likely hypovolemic Hyperkalemia - will hydrate. Kayexelate RONIT - likely vasomotor nephropathy - has been treating LE edema as CHF, more likely venous stasis disease complicated by DVTs Pyelonephritis - with abnormal UA, abdominal pain, right flank pain, will give rocephin Bilateral LE edema - likely 2/2 DVTs H/o Atrial fibrillation - s/p PPM insertion. Sinus with long [place] currently. Cardiology consulted HTN - cont meds ? diastolic CHF - echo last September 2018 with no reduction in EF or increased pulmonary pressures. Will hydrate him for now as he is hypovolemic. COPD - prn nebs Smoker - failing chantix therapy. DVT s/p IVC filter in 1990 on chronic coumadin - subtherapeutic INR, will cont above therapy. Lifelong anticoagulation indicated given his prothrombotic state s/p IVC filter Lateral interpolar left renal lesion measuring 2.7 x 2.3 cm - will get renal US Hypoattenuating lesion in the lateral interpolar to superior right kidney measuring 10 cm most favors a simple cyst. Suspect an angiomyolipoma in inferior pole the right kidney measuring 12 mm. Hyperglycemia - will check A1c. FEN - Cardiac diet PPX - heparin, coumadin FULL CODE Dispo - inpatient 2 midnights. Justicifation of Admission Dx: Justifications for Admission: Justification of Admission Dx: Yes CHRIS GRANGER MD Sep 18, 2019 17:09
[2019-09-18 19:45] VITALS: BP 147/92
[2019-09-18] MEDS ORDERED: HEPARIN for IV BOLUS 10,000 UNIT/10 ML VIAL. IV ONE (19:45)
[2019-09-18] MEDS: HEPARIN 25,000UTS/250ML PREMIX 250 ML IV PRN (20:06)
[2019-09-18] MEDS: fentaNYL PF VIAL 100 MCG/2 ML VIAL IV PRN (20:10)
[2019-09-18] MEDS ORDERED: GABA-585 PO (20:46)
[2019-09-18] MEDS ORDERED: TRAM50TA PO (20:55)
[2019-09-18] MEDS ORDERED: ERGO2000 PO (20:55)
[2019-09-18] MEDS ORDERED: HYDR-2765 PO (20:55)
[2019-09-18] MEDS ORDERED: VARE1TAB21 PO (20:56)
[2019-09-18] MEDS ORDERED: WARF2.5T71 PO (21:04)
[2019-09-18] MEDS ORDERED: WARF-31 PO (21:04)
[2019-09-18] MEDS ORDERED: DOCUSATE SODIUM 100 MG CAPSULE. PO PRN (22:00)
[2019-09-18] MEDS ORDERED: NON FORMULARY ITEM (Albuterol Sulfate (Proventil Hfa Inhaler) 2 PUFF) IH PRN (22:00)
[2019-09-18] MEDS ORDERED: DEXTROSE 50% 25 GM / 50ML DISP.SYRIN. IV PRN (22:15)
[2019-09-18 23:00] VITALS: BP 150/90
[2019-09-18] MEDS ORDERED: IV NORMAL SALINE 1000ML BAG 1,000 ML IV ONE (23:00)
[2019-09-18] MEDS ORDERED: SODIUM POLYSTYRENE SULFON/SORB 15 GM/60 ML ORAL.SUSP. PO ONE (23:00)
[2019-09-18] MEDS ORDERED: WARFARIN 5 MG TABLET. PO SCH (23:00)
[2019-09-19] MEDS: NICOTINE 21MG PATCH. TD SCH ×2 (00:08→08:48)
[2019-09-19] MEDS: CARVEDILOL 12.5 MG TABLET. PO SCH ×3 (00:10→17:26)
[2019-09-19] MEDS: GABAPENTIN 100 MG CAPSULE. PO SCH ×3 (00:10→21:10)
[2019-09-19] MEDS: cefTRIAXone IV Push 1 GM VIAL. IVP SCH ×2 (00:26→21:16)
[2019-09-19] MEDS: ALBUTEROL SULFATE 2.5 MG/3 ML NEBU. NEB PRN (00:45)
[2019-09-19 02:08] LABS: CALCIUM 8.5 mg/dL (8.5-10.1); CREATININE 1.6 mg/dL (0.7-1.3); POTASSIUM 4.8 mmol/L (3.5-5.1)
[2019-09-19 02:14] LABS: PROTHROMBIN TIME PATIENT 18.5 SEC (11.7-14.0)
[2019-09-19 02:15] LABS: UNFRACTIONATED HEPARIN TESTING 0.73 IU/mL (0.30-0.70)
[2019-09-19 03:00] VITALS: BP 132/77
[2019-09-19] MEDS ORDERED: ANTI-COAG MONITOR BY PHARMACY. MC PRN (03:45)
--- NOTE | 2019-09-19 03:53 | NUR ---
Pharmacy Warfarin Dosing Note S:Pharmacy consulted to assist with anticoagulation therapy started with target INR: 2 -3 O:MARTIN MOSLEY is a 64 year old M with DVT/PE LABS: Last INR: 1.5 Last HGB: 16.2 Last HCT: 46 Last PLT: 173 Last dose of 5 mg given on at Previous Regimen: 5MG DAILY 2.5 MG WEDNESDAY Vitamin K given: N Drug Interaction Changes: Ongoing Drug Interactions: A:INR of 1.5 is below desired range. Target range for this patient is: 2 -3 P: Warfarin dose: 10 mg Now Bridge Therapy: Heparin Therapeutic Next INR due DAILY Pharmacy anticoagulation service will continue to follow. CANDY VERAS RPH, 09/19/19 [id number] Signed: 09/19/19 at 3 by CANDY VERAS RPH PHA
[2019-09-19] MEDS: traMADol 50 MG TABLET PO PRN ×2 (06:00→21:11)
[2019-09-19 07:00] VITALS: BP 169/79
[2019-09-19] MEDS: HEPARIN 25,000UTS/250ML PREMIX 250 ML IV PRN ×2 (07:04→18:05)
[2019-09-19] MEDS ORDERED: CARVEDILOL 12.5 MG TABLET. PO SCH (08:00)
--- NOTE | 2019-09-19 08:44 | EKG ---
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
[2019-09-19] MEDS: FAMOTIDINE 20 MG TABLET. PO SCH (08:48)
[2019-09-19] MEDS: BENZONATATE 100 MG CAPSULE. PO PRN ×2 (08:52→21:15)
[2019-09-19] MEDS: ALLOPURINOL 100 MG TABLET. PO SCH (09:00)
[2019-09-19] MEDS ORDERED: LOSARTAN POTASSIUM 50 MG TABLET. PO SCH (09:00)
[2019-09-19] MEDS: INSULIN LISPRO 300 UNITS/3 ML VIAL. SQ SCH ×4 (09:05→21:15)
[2019-09-19 11:00] VITALS: BP 156/98
--- NOTE | 2019-09-19 11:44 | PDOC ---
[employer] PROGRESS NOTE Chief Complaint Chief Complaint Lower extremity swelling with bilateral DVTs 29-year old IVC filter that might possibly be clogged? FIB, CHF, HTN, Syncope COPD Pacemaker, Appendectomy, Cholecystectomy History of Present Illness History of Present Illness 09/18/2021 Patient seen and examined He still has extensive edema and extensive venous stasis of both lower extremities I reviewed the chart extensively with his I called interventional radiology and ask for their input regarding the status of his IVC filter (Dr. Ferrera is going to give an opinion) Discussed with RN Discussed with cardiology nurse practitioner Vitals/I&O Vitals/I&O: Vital Signs Date Time Temp Pulse Resp B/P (MAP) Pulse Ox O2 Delivery O2 Flow Rate FiO2 09/19/19 11:00 98.3 74 20 156/98 (117) 96 Room Air 98.3 09/19/19 00:44 3.0 I & O 09/18/19 09/18/19 09/19/19 15:00 23:00 07:00 Intake Total 300 ml 400 ml Output Total 850 ml Balance 300 ml -450 ml Physical Exam General: Alert, Oriented X3, Cooperative, mild distress Abdomen: Normal bowel sounds, Soft, No hepatosplenomegaly, No masses, Other (Right flank pain) Extremities: Other (3+ edema bilaterally, tender swollen venous stasis changes also) Skin: Other (Stasis dermatitis bilateral LE) Labs Labs: Laboratory Tests Test 09/18/19 13:50 09/19/19 01:50 09/19/19 07:19 09/19/19 08:35 White Blood Count 11.5 x10^3/uL (4.0-11.0) Red Blood Count 4.60 x10^6/uL (4.30-5.70) Hemoglobin 16.2 g/dL (13.0-17.5) Hematocrit 46.0 % (39.0-53.0) Mean Corpuscular Volume 100 fL (79-100) Mean Corpuscular Hemoglobin 35 pg (25-35) Mean Corpuscular Hemoglobin Concent 35 g/dL (31-37) Red Cell Distribution Width 14.0 % (11.5-14.5) Platelet Count 173 x10^3/uL (140-400) Neutrophils (%) (Auto) 71 % (31-73) Lymphocytes (%) (Auto) 12 % (24-48) Monocytes (%) (Auto) 6 % (0-9) Eosinophils (%) (Auto) 11 % (0-3) Basophils (%) (Auto) 1 % (0-3) Neutrophils # (Auto) 8.1 x10^3/uL (1.8-7.7) Lymphocytes # (Auto) 1.4 x10^3/uL (1.0-4.8) Monocytes # (Auto) 0.7 x10^3/uL (0.0-1.1) Eosinophils # (Auto) 1.3 x10^3/uL (0.0-0.7) Basophils # (Auto) 0.1 x10^3/uL (0.0-0.2) Segmented Neutrophils % 67 % (35-66) Lymphocytes % 17 % (24-48) Monocytes % 3 % (0-10) Eosinophils % 13 % (0-5) Platelet Estimate Adequate (ADEQUATE) Prothrombin Time 18.1 SEC (11.7-14.0) 18.5 SEC (11.7-14.0) Prothromb Time International Ratio 1.5 (0.8-1.1) 1.6 (0.8-1.1) Activated Partial Thromboplast Time 35 SEC (24-38) Urine Collection Type Unknown Urine Color [place] Urine Clarity Clear Urine pH 5.5 (<5.0-8.0) Urine Specific [place] 1.025 (1.000-1.030) Urine Protein 100 mg/dL (NEG-TRACE) Urine Glucose (UA) 250 mg/dL (NEG) Urine Ketones (Stick) Trace mg/dL (NEG) Urine Blood Negative (NEG) Urine Nitrite Negative (NEG) Urine Bilirubin Small (NEG) Urine Urobilinogen Dipstick 1.0 mg/dL (0.2 mg/dL) Urine Leukocyte Esterase Trace (NEG) Urine RBC 0 /HPF (0-2) Urine WBC Rare /HPF (0-4) Urine Bacteria 0 /HPF (0-FEW) Urine Hyaline Casts Few /HPF Urine Mucus Mod /LPF Sodium Level 131 mmol/L (136-145) 131 mmol/L (136-145) Potassium Level 5.6 mmol/L (3.5-5.1) 4.8 mmol/L (3.5-5.1) Chloride Level 95 mmol/L (98-107) 97 mmol/L (98-107) Carbon Dioxide Level 28 mmol/L (21-32) 26 mmol/L (21-32) Anion Gap 8 (6-14) 8 (6-14) Blood Urea Nitrogen 27 mg/dL (8-26) 26 mg/dL (8-26) Creatinine 1.7 mg/dL (0.7-1.3) 1.6 mg/dL (0.7-1.3) Estimated GFR (Cockcroft-Gault) 41.0 44.0 Glucose Level 205 mg/dL (70-99) 208 mg/dL (70-99) Calcium Level 8.7 mg/dL (8.5-10.1) 8.5 mg/dL (8.5-10.1) Total Bilirubin 1.3 mg/dL (0.2-1.0) Direct Bilirubin 0.4 mg/dL (0.0-0.2) Aspartate Amino Transf (AST/SGOT) 17 U/L (15-37) Alanine Aminotransferase (ALT/SGPT) 28 U/L (16-63) Alkaline Phosphatase 101 U/L (46-116) Troponin I Quantitative < 0.017 ng/mL (0.000-0.055) US-Ngt-Q-Type Natriuretic Peptide 783 pg/mL (0-124) Total Protein 7.9 g/dL (6.4-8.2) Albumin 3.7 g/dL (3.4-5.0) Lipase 110 U/L (73-393) Heparin Anti-Xa Act, Unfractionated 0.73 IU/mL (0.30-0.70) 0.48 IU/mL (0.30-0.70) Glucose (Fingerstick) 241 mg/dL (70-99) Test 09/19/19 11:32 Glucose (Fingerstick) 185 mg/dL (70-99) Assessment and Plan Assessmemt and Plan Problems Medical Problems: (1) DVT, bilateral lower limbs Status: Acute Lower extremity swelling with bilateral DVTs 29-year old IVC filter that might possibly be clogged? FIB, CHF, HTN, Syncope COPD Pacemaker, Appendectomy, Cholecystectomy Plan We are trying to evaluate the status of this 29-year-old IVC filter (I did speak with Dr. Ferrera he is going to give an opinion) For now IV heparin drip and increase his Coumadin (I would like to change him over to Eliquis if subspecialist agree?) Home meds Trend labs Cardiac monitoring Await further subspecialist input Prognosis long-term guarded Comment Review of Relevant I have reviewed the following items cassie (where applicable) has been applied. Medications: Current Medications Medications (Trade) Dose Ordered Sig/Félix Route PRN Reason Start Time Stop Time Status Last Admin Dose Admin Fentanyl Citrate (Fentanyl 2ml Vial) 50 mcg 1X ONCE IVP 09/18/19 14:15 09/18/19 14:22 DC 09/18/19 14:47 Heparin Sodium (Porcine) (Heparin Sodium) 10,000 unit 1X ONCE IV 09/18/19 19:45 09/18/19 19:46 DC 09/18/19 20:09 Heparin Sodium/ Dextrose 250 ml @ 20 mls/hr CONT PRN IV PER PROTOCOL 09/18/19 17:00 09/19/19 07:04 Ondansetron HCl (Zofran) 4 mg PRN Q8HRS PRN IV NAUSEA/VOMITING 09/18/19 16:45 09/18/19 21:53 DC 09/18/19 18:39 Fentanyl Citrate (Fentanyl 2ml Vial) 50 mcg PRN Q1HR PRN IV PAIN 09/18/19 16:45 09/19/19 16:44 09/18/19 20:10 Allopurinol (Zyloprim) 100 mg DAILY PO 09/19/19 09:00 09/19/19 09:00 Benzonatate (Tessalon Perle) 100 mg PRN TID PRN PO COUGH 1ST CHOICE 09/18/19 22:00 09/19/19 08:52 Gabapentin (Neurontin) 200 mg BID PO 09/18/19 23:00 09/19/19 08:48 Lorazepam (Ativan) 2 mg PRN QHS PRN PO sleep/anxiety 09/18/19 22:00 09/19/19 00:10 Tramadol HCl (Ultram) 50 mg PRN Q6HRS PRN PO MODERATE PAIN 4-6 09/18/19 22:00 09/19/19 06:00 Warfarin Sodium (Coumadin) 10 mg QHS PO 09/18/19 23:00 09/19/19 00:10 Famotidine (Pepcid) 20 mg DAILY PO 09/19/19 09:00 09/19/19 08:48 Albuterol Sulfate (Ventolin Neb Soln) 2.5 mg PRN Q6HRS PRN NEB SHORTNESS OF BREATH 09/18/19 22:00 09/19/19 00:45 Insulin Human Lispro (HumaLOG) 0-7 UNITS TIDACHC SQ 09/19/19 07:30 09/19/19 09:05 Warfarin Sodium (Coumadin Per Pharmacy) 1 each PRN DAILY PRN MC SEE COMMENTS 09/19/19 22:15 09/19/19 03:45 Ceftriaxone Sodium (Rocephin) 1 gm Q24H IVP 09/18/19 23:00 09/19/19 00:26 Sodium Chloride 1,000 ml @ 75 mls/hr 1X ONCE IV 09/18/19 23:00 09/19/19 12:19 09/19/19 00:28 Sodium Polystyrene Sulfonate (Kayexalate) 15 gm 1X ONCE PO 09/18/19 23:00 09/18/19 23:01 DC 09/19/19 00:07 Carvedilol (Coreg) 12.5 mg BIDWMEALS PO 09/18/19 23:00 09/19/19 08:47 Diltiazem HCl (Cardizem 24hr Cd) 180 mg DAILY PO 09/18/19 23:00 09/19/19 08:47 Nicotine (Nicoderm Cq 21mg) 1 patch DAILY TD 09/18/19 23:30 09/19/19 08:48 Info (Anti-Coagulation Monitoring By Pharmacy) 1 each PRN DAILY PRN MC SEE COMMENTS 09/19/19 03:45 09/19/19 03:47 Justicifation of Admission Dx: Justifications for Admission: Justification of Admission Dx: Yes NEHEMIAH ROBBINS III DO Sep 19, 2019 11:44
[2019-09-19] MEDS: fentaNYL PF VIAL 100 MCG/2 ML VIAL IV PRN ×2 (12:05→16:29)
--- NOTE | 2019-09-19 12:14 | PDOC ---
Provider Note Provider Note IR Note Mr Gruber is a 64 year old male admitted with ble pain and swelling secondary to significant BLE DVT. 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 He has been on Coumadin ever since, with intermittent recurrent dvt in the lower extremities since then, secondary to inability to remain at a the rapeutic INR. He has history of chronic venous disease, likely relating at least in part to post thrombotic syndrome. Ultrasound here showed clot from pop to CFV on the right, and Pop to SFV on left. CT shows a somewhat low lying clayton filter which is tilted. The appearance suggests the apex is embedded in the IVC wall. There is also suggestion of clot in the iliac veins and IVC extending to filter, but without contrast eval is limited. He has some degree of renal failure with elevated Cr. No plegmasia, but significant edema noted bilateral R>L. He reports this as worse than normal, but chronic. Given findings, comorbidities, and available resources I recommended anticoagulation (which is already initiated). We discussed catheter directed lysis, which would require likely multiple ICU days, bleeding risk, and somewhat low likely laughlin of total clot removal given age and extensive nature of thrombus. Given the type and age of the filter, and renal failure, I think it may be in his best interest to follow up at center with considerable experience/expertise in advanced filter removal techniques, and access to clot removal devices which do not result in as much hemolysis. Locally, I believe or [facility] would be appropriate centers. Justicifation of Admission Dx: Justifications for Admission: Justification of Admission Dx: Yes DENISSE HODGES MD Sep 19, 2019 12:14
--- NOTE | 2019-09-19 14:40 | NUR ---
Pharmacy Warfarin Dosing Note S:Pharmacy consulted to assist with anticoagulation therapy started with target INR: 2 -3 O:MARTIN MOSLEY is a 64 year old M with DVT/PE LABS: Last INR: 1.6 Last HGB: 16.2 Last HCT: 46 Last PLT: 173 Last dose of 10 mg given on 09/19/19 at 0010 Previous Regimen: 15MG DAILY PER JHUNNE Vitamin K given: N Drug Interaction Changes: Ongoing Drug Interactions: A:INR of 1.6 is below desired range. Target range for this patient is: 2 -3 P: Warfarin dose: 20mg Today at 1600 Bridge Therapy: Heparin Therapeutic Next INR due IN AM Pharmacy anticoagulation service will continue to follow. BONIFACIO LOONEY [facility], 09/19/19 [id number]
[2019-09-19 15:00] VITALS: BP 134/93
--- NOTE | 2019-09-19 15:03 | PDOC2 ---
DORIS GROVES INTERNAL CONTROL ANALYST 09/19/19 1503: CARDIAC CONSULT DATE OF CONSULT Date of Consult DATE: 09/19/19 TIME: 14:32 REASON FOR CONSULT Reason for Consult: DVT REFERRING PHYSICIAN Referring Physician: Carmen SOURCE Source: Chart review, Patient HISTORY OF PRESENT ILLNESS HISTORY OF PRESENT ILLNESS This is a pleasant 64 yo male admitted for complains of right groin pain. His last BM was 3 days ago and takes routine opioid mainly due to leg pain. He does have longstanding hx of LE DVT and has occlusive DVT to RLE and nonocclusive to LLE. No redness but does have brown hyperpigmentation with chronic edema more to right. He does have IVC filter which was placed 29 yrs ago. He does take coumadin but so far he is not compliant with diet consistency and eating lots of green vegetables as he admits and his INR is not therapeutic. He has not seen a DVT specialist before. Denies any chest pain, SOA. He has limited mobility due to his leg issues. PAST MEDICAL HISTORY Cardiovascular: AFIB, HTN, Hyperlipidemia, Other (symptomatic bradycardia) Pulmonary: COPD Heme/Onc: Other (DVT) Musculoskeletal: Osteoarthritis Rheumatologic: Gout PAST SURGICAL HISTORY Past Surgical History: Pacemaker ([facility] [facility]), Appendectomy, Cholecystectomy, Other (IVC filter placement) FAMILY HISTORY Family History: Hypertension SOCIAL HISTORY Smoke: <1 pack per day ALCOHOL: none Drugs: None Lives: with Family CURRENT MEDICATIONS CURRENT MEDICATIONS Current Medications Medications (Trade) Dose Ordered Sig/Félix Route PRN Reason Start Time Stop Time Status Last Admin Dose Admin Heparin Sodium (Porcine) (Heparin Sodium) 10,000 unit 1X ONCE IV 09/18/19 19:45 09/18/19 19:46 DC 09/18/19 20:09 Heparin Sodium/ Dextrose 250 ml @ 20 mls/hr CONT PRN IV PER PROTOCOL 09/18/19 17:00 09/19/19 07:04 Ondansetron HCl (Zofran) 4 mg PRN Q8HRS PRN IV NAUSEA/VOMITING 09/18/19 16:45 09/18/19 21:53 DC 09/18/19 18:39 Fentanyl Citrate (Fentanyl 2ml Vial) 50 mcg PRN Q1HR PRN IV PAIN 09/18/19 16:45 09/19/19 16:44 09/19/19 12:05 Allopurinol (Zyloprim) 100 mg DAILY PO 09/19/19 09:00 09/19/19 09:00 Benzonatate (Tessalon Perle) 100 mg PRN TID PRN PO COUGH 1ST CHOICE 09/18/19 22:00 09/19/19 08:52 Gabapentin (Neurontin) 200 mg BID PO 09/18/19 23:00 09/19/19 08:48 Lorazepam (Ativan) 2 mg PRN QHS PRN PO sleep/anxiety 09/18/19 22:00 09/19/19 00:10 Tramadol HCl (Ultram) 50 mg PRN Q6HRS PRN PO MODERATE PAIN 4-6 09/18/19 22:00 09/19/19 06:00 Warfarin Sodium (Coumadin) 10 mg QHS PO 09/18/19 23:00 09/19/19 00:10 Famotidine (Pepcid) 20 mg DAILY PO 09/19/19 09:00 09/19/19 08:48 Albuterol Sulfate (Ventolin Neb Soln) 2.5 mg PRN Q6HRS PRN NEB SHORTNESS OF BREATH 09/18/19 22:00 09/19/19 00:45 Insulin Human Lispro (HumaLOG) 0-7 UNITS TIDACHC SQ 09/19/19 07:30 09/19/19 12:24 Warfarin Sodium (Coumadin Per Pharmacy) 1 each PRN DAILY PRN MC SEE COMMENTS 09/19/19 22:15 09/19/19 14:02 Ceftriaxone Sodium (Rocephin) 1 gm Q24H IVP 09/18/19 23:00 09/19/19 00:26 Sodium Chloride 1,000 ml @ 75 mls/hr 1X ONCE IV 09/18/19 23:00 09/19/19 12:19 DC 09/19/19 00:28 Sodium Polystyrene Sulfonate (Kayexalate) 15 gm 1X ONCE PO 09/18/19 23:00 09/18/19 23:01 DC 09/19/19 00:07 Carvedilol (Coreg) 12.5 mg BIDWMEALS PO 09/18/19 23:00 09/19/19 08:47 Diltiazem HCl (Cardizem 24hr Cd) 180 mg DAILY PO 09/18/19 23:00 09/19/19 08:47 Nicotine (Nicoderm Cq 21mg) 1 patch DAILY TD 09/18/19 23:30 09/19/19 08:48 Info (Anti-Coagulation Monitoring By Pharmacy) 1 each PRN DAILY PRN MC SEE COMMENTS 09/19/19 03:45 09/19/19 03:47 ALLERGIES ALLERGIES: Coded Allergies: buprenorphine (Verified Allergy, Intermediate, 09/02/19) ROS Review of System 14 point ROS evaluated with pertinent positives noted per HPI PHYSICAL EXAM General: Alert, Oriented X3, Cooperative, No acute distress HEENT: Atraumatic, Mucous membr. moist/pink Lungs: Clear to auscultation, Normal air movement Heart: Other (Chronic AFIB) Abdomen: Soft, Other (RLQ tenderness) Extremities: No cyanosis, Other (lymphedema both legs) Skin: No breakdown Neuro: Normal speech, Sensation intact Psych/Mental Status: Mental status NL, Mood NL MUSCULOSKELETAL: Osteoarthritic changes both hands VITALS/I&O VITALS/I&O: Vital Signs Date Time Temp Pulse Resp B/P (MAP) Pulse Ox O2 Delivery O2 Flow Rate FiO2 09/19/19 12:05 19 96 Room Air 09/19/19 11:00 98.3 74 156/98 (117) 98.3 09/19/19 00:44 3.0 I & O 09/18/19 09/18/19 09/19/19 15:00 23:00 07:00 Intake Total 300 ml 400 ml Output Total 850 ml Balance 300 ml -450 ml LABS Lab: Laboratory Tests Test 09/19/19 01:50 09/19/19 07:19 09/19/19 08:35 09/19/19 11:32 Prothrombin Time 18.5 SEC (11.7-14.0) H Prothrombin Time INR 1.6 (0.8-1.1) H Heparin Anti-Xa Act, Unfractionated 0.73 IU/mL (0.30-0.70) H 0.48 IU/mL (0.30-0.70) Sodium Level 131 mmol/L (136-145) L Potassium Level 4.8 mmol/L (3.5-5.1) Chloride Level 97 mmol/L (98-107) L Carbon Dioxide Level 26 mmol/L (21-32) Anion Gap 8 (6-14) Blood Urea Nitrogen 26 mg/dL (8-26) Creatinine 1.6 mg/dL (0.7-1.3) H Estimated GFR (Cockcroft-Gault) 44.0 Glucose Level 208 mg/dL (70-99) H Calcium Level 8.5 mg/dL (8.5-10.1) Glucose (Fingerstick) 241 mg/dL (70-99) H 185 mg/dL (70-99) H Laboratory Tests 09/19/19 01:50 ECHOCARDIOGRAM ECHOCARDIOGRAM <Conclusion> The left ventricle is normal size. Left ventricle systolic function is low normal. The Ejection Fraction is 50-55%. There are probable device leads in the right ventricle and atria. There is no significant aortic valvular stenosis. Doppler and Color Flow revealed no significant aortic regurgitation. Doppler and Color-flow revealed mild mitral regurgitation. Doppler and Color Flow revealed trace to mild tricuspid regurgitation. The PA pressure was estimated at 29 mmHg. The ascending aorta is mildly dilated at 3.6 cm. DATE: 09/12/18 1239 ASSESSMENT/PLAN ASSESSMENT/PLAN 1. Acute extensive bilateral DVT: no phlegmasia but notable for subtherapeutic INR due to diet noncompliance. 2. Chronic venous insufficiency with sedentary lifestyle due to poor mobility 3. Abdominal pain/right groin pain with opioid induced constipation 4. Chronic AFIB rate controlled 5. PPM in situ: [facility] [facility] 6. HTN: controlled 7. HLP 8. Morbid obesity 9. Hx of very old IVC filter 10. Tobaccoism Recommendations 1. Continue coreg and cardizem 2. Warfarin to be managed by pharmacy as an inpt. Bridged with heparin. 3. Dietitian and pharmacy consult for diet modification. 4. Will provide referral to DVT specialist as an outpt. 5. Smoking cessation LALITHA BLAKE MD 09/19/19 1635: CARDIAC CONSULT ASSESSMENT/PLAN ASSESSMENT/PLAN Patient seen and examined Discussed with our nurse practitioner and I agree with his assessment and plan. Acute bilateral DVT. Subtherapeutic INR. On Coumadin. History of a IVC filter. Adjusting Coumadin. Bridging with heparin. Consider future outpatient consult. Chronic atrial fibrillation. Rate controlled. Anticoagulation as above. Morbid obesity. Dietitian consult. Controlled hypertension. Hyperlipidemia. Monitoring lab. Tobacco abuse. Discussed with the patient. Thank you for allowing us to participate in the care of your patient. DORIS GROVES APRN Sep 19, 2019 15:03 LALITHA BLAKE MD Sep 19, 2019 16:35
--- NOTE | 2019-09-19 15:12 | NUR ---
SW following. Reviewed chart and spoke with RN. Spoke with pt who stated he lives at home with his . Pt on room air but stated he wears 02 at night and has 02 at home. Pt declined SNU but stated he would like HH at discharge to increase mobility. Pt stated he his homebound and that his does the driving. Pt on oral medications. Patient Choice of Vendor form completed. JULIO phoned and faxed HH referral to [facility], , (fax). SW to continue following.
--- NOTE | 2019-09-19 16:56 | NUR ---
Patient denies chest pain or palpitations, on pacemaker, had wide QRS complexes on the monitor. This nurse notified Cardio [employer] SALESPERSON, MILEY Trivedi, no new orders received.
[2019-09-19 19:53] VITALS: BP 120/72
[2019-09-19] MEDS: LACTOBACILLUS RHAMNOSUS GG 1 CAPSULE. PO SCH (21:10)
[2019-09-19] MEDS: WARFARIN 5 MG TABLET. PO SCH (21:10)
[2019-09-19 23:50] VITALS: BP 118/74
[2019-09-20 01:08] LABS: HEMOGLOBIN A1C 8.2 % (4.8-5.6)
[2019-09-20] MEDS: fentaNYL PF VIAL 100 MCG/2 ML VIAL IVP PRN ×4 (03:14→21:06)
[2019-09-20 03:39] VITALS: BP 157/73
[2019-09-20 04:50] LABS: HEMATOCRIT 39.7 % (39.0-53.0); HEMOGLOBIN 13.9 g/dL (13.0-17.5); RED BLOOD COUNT 3.96 x10^6/uL (4.30-5.70); RED CELL DISTRIBUTION WIDTH 13.8 % (11.5-14.5); WHITE BLOOD COUNT 8.2 x10^3/uL (4.0-11.0)
[2019-09-20 04:58] LABS: PROTHROMBIN TIME PATIENT 19.6 SEC (11.7-14.0)
[2019-09-20 04:59] LABS: UNFRACTIONATED HEPARIN TESTING 0.2 IU/mL (0.30-0.70)
[2019-09-20 05:02] LABS: CALCIUM 8.5 mg/dL (8.5-10.1); CREATININE 1.4 mg/dL (0.7-1.3); GFR 51.4; POTASSIUM 4.4 mmol/L (3.5-5.1)
[2019-09-20 07:00] VITALS: BP 161/77
[2019-09-20] MEDS: HEPARIN 25,000UTS/250ML PREMIX 250 ML IV PRN ×2 (07:39→21:21)
[2019-09-20] MEDS: CARVEDILOL 12.5 MG TABLET. PO SCH ×2 (08:16→16:42)
[2019-09-20] MEDS: LACTOBACILLUS RHAMNOSUS GG 1 CAPSULE. PO SCH ×2 (08:16→21:05)
[2019-09-20] MEDS: FAMOTIDINE 20 MG TABLET. PO SCH (08:16)
[2019-09-20] MEDS: ALLOPURINOL 100 MG TABLET. PO SCH (08:17)
[2019-09-20] MEDS: GABAPENTIN 100 MG CAPSULE. PO SCH ×2 (08:17→21:05)
[2019-09-20] MEDS: NICOTINE 21MG PATCH. TD SCH (08:18)
[2019-09-20] MEDS: INSULIN LISPRO 300 UNITS/3 ML VIAL. SQ SCH ×4 (08:41→21:00)
--- NOTE | 2019-09-20 09:03 | PDOC ---
CARDIO Progress Notes Date and Time Date of Service 09/20/2019 Time of Evaluation 1130 Subjective Subjective: No Chest Pain, No shortness of breath, No Palpitations Vitals Vitals Vital Signs Date Time Temp Pulse Resp B/P (MAP) Pulse Ox O2 Delivery O2 Flow Rate FiO2 09/20/19 08:17 87 161/77 09/20/19 07:00 97.8 19 95 Room Air 97.8 Weight Weight [ ] Input and Output Intake and Output Intake and Output 09/20/19 07:00 Intake Total 1050 ml Output Total 600 ml Balance 450 ml Intake Oral 1050 ml Output Urine Total 600 ml Laboratory Labs Laboratory Tests Test 09/19/19 11:32 09/19/19 14:22 09/19/19 16:52 09/19/19 20:53 Glucose (Fingerstick) 185 mg/dL (70-99) 219 mg/dL (70-99) 201 mg/dL (70-99) Heparin Anti-Xa Act, Unfractionated 0.32 IU/mL (0.30-0.70) Test 09/20/19 04:05 09/20/19 06:57 White Blood Count 8.2 x10^3/uL (4.0-11.0) Red Blood Count 3.96 x10^6/uL (4.30-5.70) Hemoglobin 13.9 g/dL (13.0-17.5) Hematocrit 39.7 % (39.0-53.0) Mean Corpuscular Volume 100 fL (79-100) Mean Corpuscular Hemoglobin 35 pg (25-35) Mean Corpuscular Hemoglobin Concent 35 g/dL (31-37) Red Cell Distribution Width 13.8 % (11.5-14.5) Platelet Count 163 x10^3/uL (140-400) Prothrombin Time 19.6 SEC (11.7-14.0) Prothromb Time International Ratio 1.7 (0.8-1.1) Heparin Anti-Xa Act, Unfractionated 0.20 IU/mL (0.30-0.70) Sodium Level 135 mmol/L (136-145) Potassium Level 4.4 mmol/L (3.5-5.1) Chloride Level 100 mmol/L (98-107) Carbon Dioxide Level 30 mmol/L (21-32) Anion Gap 5 (6-14) Blood Urea Nitrogen 21 mg/dL (8-26) Creatinine 1.4 mg/dL (0.7-1.3) Estimated GFR (Cockcroft-Gault) 51.4 Glucose Level 180 mg/dL (70-99) Calcium Level 8.5 mg/dL (8.5-10.1) Glucose (Fingerstick) 185 mg/dL (70-99) Physical Exam HEENT: Neck Supple W Full Motion Chest: Symmetric LUNGS: Clear to Auscultation Heart: no thrills, irregularly irregular (AFIB rate controlled) Abdomen: Soft N/T, Other (obese) Extremities: Other (2-3+ bilateral LE pitting edema) Neurology: alert, oriented, follow commands Assessment Assessment 1. Acute extensive bilateral DVT: no phlegmasia but notable for subtherapeutic INR due to diet noncompliance. 2. Chronic venous insufficiency with sedentary lifestyle due to poor mobility 3. Abdominal pain/right groin pain with opioid induced constipation 4. Chronic AFIB rate controlled 5. PPM in situ: [facility] [facility] 6. HTN: controlled 7. HLP 8. Morbid obesity 9. Hx of very old IVC filter 10. Tobaccoism Recommendations 1. Continue coreg and cardizem 2. INR at 1.7. Warfarin to be managed by pharmacy as an inpt. Bridged with heparin. 3. Dietitian and pharmacy consult for diet modification. 4. Will provide referral to DVT specialist as an outpt in a tertiary care facility 5. Smoking cessation Justicifation of Admission Dx: Justifications for Admission: Justification of Admission Dx: Yes DORIS GROVES APRN Sep 20, 2019 09:03
--- NOTE | 2019-09-20 10:28 | NUR ---
Pharmacy Warfarin Dosing Note S: Pharmacy consulted to assist with anticoagulation therapy started COMBER SETTER O: MARTIN MOSLEY is a 64 year old M with DVT/PE LABS: Last INR: 1.7 Last dose of 20mg given on 09/20/19 at 2110 Ongoing Drug Interactions: ALLOPURINOL A:INR of 1.7 is below desired range. Target range for this patient is: 2 -3 P: Warfarin dose: 20mg Today Bridge Therapy: Heparin Therapeutic Next INR due 09/21/19 AM Pharmacy anticoagulation service will continue to follow. HARRIS CARDONA RPH, 09/20/19 0113
[2019-09-20 10:45] VITALS: BP 122/75
[2019-09-20] MEDS ORDERED: MAGNESIUM CITRATE 296 ML SOLUTION. PO ONE (10:45)
--- NOTE | 2019-09-20 11:47 | PDOC ---
[facility] PROGRESS NOTE Chief Complaint Chief Complaint Lower extremity swelling with bilateral DVTs 31-year old IVC filter FIB, CHF, HTN, Syncope COPD Pacemaker, Appendectomy, Cholecystectomy History of Present Illness History of Present Illness 09/20/2019 Patient seen and examined He mainly complains of pain and constipation but also wants to go home His INR is only 1.7 so we will have to continue heparin with probable discharge tomorrow Discussed with RN Chart reviewed 09/18/2021 Patient seen and examined He still has extensive edema and extensive venous stasis of both lower extremities I reviewed the chart extensively with his I called interventional radiology and ask for their input regarding the status of his IVC filter (Dr. Ferrera is going to give an opinion) Discussed with RN Discussed with cardiology nurse practitioner Vitals/I&O Vitals/I&O: Vital Signs Date Time Temp Pulse Resp B/P (MAP) Pulse Ox O2 Delivery O2 Flow Rate FiO2 09/20/19 10:45 97.9 89 19 122/75 (91) 95 Room Air 97.9 09/20/19 08:00 3.0 I & O 09/19/19 09/19/19 09/20/19 15:00 23:00 07:00 Intake Total 500 ml 250 ml 300 ml Output Total 600 ml Balance 500 ml 250 ml -300 ml Physical Exam General: Alert, Oriented X3, Cooperative, No acute distress Heart: Other (Chronic AFIB) Abdomen: Soft, Other (RLQ tenderness) Extremities: No cyanosis, Other (lymphedema both legs) Skin: No breakdown Labs Labs: Laboratory Tests Test 09/19/19 14:22 09/19/19 16:52 09/19/19 20:53 09/20/19 04:05 Heparin Anti-Xa Act, Unfractionated 0.32 IU/mL (0.30-0.70) 0.20 IU/mL (0.30-0.70) Glucose (Fingerstick) 219 mg/dL (70-99) 201 mg/dL (70-99) White Blood Count 8.2 x10^3/uL (4.0-11.0) Red Blood Count 3.96 x10^6/uL (4.30-5.70) Hemoglobin 13.9 g/dL (13.0-17.5) Hematocrit 39.7 % (39.0-53.0) Mean Corpuscular Volume 100 fL (79-100) Mean Corpuscular Hemoglobin 35 pg (25-35) Mean Corpuscular Hemoglobin Concent 35 g/dL (31-37) Red Cell Distribution Width 13.8 % (11.5-14.5) Platelet Count 163 x10^3/uL (140-400) Prothrombin Time 19.6 SEC (11.7-14.0) Prothromb Time International Ratio 1.7 (0.8-1.1) Sodium Level 135 mmol/L (136-145) Potassium Level 4.4 mmol/L (3.5-5.1) Chloride Level 100 mmol/L (98-107) Carbon Dioxide Level 30 mmol/L (21-32) Anion Gap 5 (6-14) Blood Urea Nitrogen 21 mg/dL (8-26) Creatinine 1.4 mg/dL (0.7-1.3) Estimated GFR (Cockcroft-Gault) 51.4 Glucose Level 180 mg/dL (70-99) Calcium Level 8.5 mg/dL (8.5-10.1) Magnesium Level 2.0 mg/dL (1.8-2.4) Test 09/20/19 06:57 09/20/19 11:06 Glucose (Fingerstick) 185 mg/dL (70-99) 214 mg/dL (70-99) Assessment and Plan Assessmemt and Plan Problems Medical Problems: (1) DVT, bilateral lower limbs Status: Acute Lower extremity swelling with bilateral DVTs 31-year old IVC filter FIB, CHF, HTN, Syncope COPD Pacemaker, Appendectomy, Cholecystectomy Plan For now IV heparin drip and increase his Coumadin Discharge once his INR is greater than 2 I added in some magnesium citrate Home meds Trend labs Cardiac monitoring Await further subspecialist input Comment Review of Relevant I have reviewed the following items cassie (where applicable) has been applied. Medications: Current Medications Medications (Trade) Dose Ordered Sig/Félix Route PRN Reason Start Time Stop Time Status Last Admin Dose Admin Warfarin Sodium (Coumadin Per Pharmacy) 1 each PRN DAILY PRN MC SEE COMMENTS 09/19/19 22:15 09/20/19 10:24 Warfarin Sodium (Coumadin) 20 mg QHS PO 09/19/19 14:39 09/19/19 21:10 Lactobacillus Rhamnosus (Culturelle) 1 cap BID PO 09/19/19 21:00 09/20/19 08:16 Fentanyl Citrate (Fentanyl 2ml Vial) 50 mcg PRN Q2HR PRN IVP SEVERE PAIN 7-10 09/19/19 23:15 09/20/19 08:16 Lorazepam (Ativan Inj) 1 mg PRN Q4HRS PRN IVP ANXIETY / AGITATION 09/20/19 10:00 09/20/19 11:28 Magnesium Citrate (Citroma) 296 ml 1X ONCE PO 09/20/19 10:45 09/20/19 10:46 DC 09/20/19 10:45 Justicifation of Admission Dx: Justifications for Admission: Justification of Admission Dx: Yes NEHEMIAH ROBBINS III DO Sep 20, 2019 11:47
[2019-09-20 14:50] VITALS: BP 189/63
--- NOTE | 2019-09-20 15:20 | NUR ---
SW following. Spoke with RN and reviewed chart. Spoke with Sr. Pozo and pt not ready for discharge today per DVT. Pt remains on IV Rocephin and 02 at night. Pt does have home 02 and will discharge with his and [facility] when stable. Spoke with Abigail from [facility] and they have accepted pt for HH at time of discharge. SW to continue following.
[2019-09-20 19:59] VITALS: BP 142/83
[2019-09-20] MEDS: WARFARIN 5 MG TABLET. PO SCH (21:05)
[2019-09-20] MEDS: cefTRIAXone IV Push 1 GM VIAL. IVP SCH (21:05)
[2019-09-20] MEDS: BENZONATATE 100 MG CAPSULE. PO PRN (21:05)
[2019-09-20] MEDS: ALBUTEROL SULFATE 2.5 MG/3 ML NEBU. NEB PRN (22:35)
[2019-09-20 23:12] VITALS: BP 132/71
[2019-09-21 04:25] VITALS: BP 128/77
[2019-09-21 04:46] LABS: PROTHROMBIN TIME PATIENT 25.9 SEC (11.7-14.0); UNFRACTIONATED HEPARIN TESTING 0.36 IU/mL (0.30-0.70)
[2019-09-21 05:06] LABS: CALCIUM 8.4 mg/dL (8.5-10.1); CREATININE 1.4 mg/dL (0.7-1.3); GFR 51.4; POTASSIUM 4.2 mmol/L (3.5-5.1)
[2019-09-21] MEDS: BENZONATATE 100 MG CAPSULE. PO PRN (05:26)
[2019-09-21] MEDS: fentaNYL PF VIAL 100 MCG/2 ML VIAL IVP PRN (05:26)
[2019-09-21] MEDS: HEPARIN 25,000UTS/250ML PREMIX 250 ML IV PRN (07:06)
[2019-09-21 07:20] VITALS: BP 173/82
[2019-09-21] MEDS: INSULIN LISPRO 300 UNITS/3 ML VIAL. SQ SCH ×2 (08:57→11:30)
[2019-09-21] MEDS: NICOTINE 21MG PATCH. TD SCH (09:00)
[2019-09-21] MEDS: LACTOBACILLUS RHAMNOSUS GG 1 CAPSULE. PO SCH (09:23)
[2019-09-21] MEDS: ALLOPURINOL 100 MG TABLET. PO SCH (09:23)
[2019-09-21] MEDS: FAMOTIDINE 20 MG TABLET. PO SCH (09:23)
[2019-09-21] MEDS: CARVEDILOL 12.5 MG TABLET. PO SCH (09:23)
[2019-09-21] MEDS: GABAPENTIN 100 MG CAPSULE. PO SCH (09:23)
[2019-09-21 11:07] VITALS: BP 134/89
--- NOTE | 2019-09-21 11:55 | PDOC ---
DORIS GROVES OIL HEATER INSTALLER 09/21/19 1155: CARDIO Progress Notes Date and Time Date of Service 09/21/2019 Time of Evaluation 0925 Subjective Subjective: No Chest Pain, No shortness of breath, No Palpitations Vitals Vitals Vital Signs Date Time Temp Pulse Resp B/P (MAP) Pulse Ox O2 Delivery O2 Flow Rate FiO2 09/21/19 11:07 99.3 94 19 134/89 (104) 95 Room Air 99.3 09/20/19 08:00 3.0 Weight Weight [ ] Input and Output Intake and Output Intake and Output 09/21/19 07:00 Intake Total 1990 ml Output Total 1125 ml Balance 865 ml Intake Oral 1990 ml Output Urine Total 1125 ml # Bowel Movements 1 Laboratory Labs Laboratory Tests Test 09/20/19 15:55 09/20/19 19:25 09/20/19 20:51 09/21/19 03:43 Glucose (Fingerstick) 183 mg/dL (70-99) 184 mg/dL (70-99) Heparin Anti-Xa Act, Unfractionated 0.48 IU/mL (0.30-0.70) 0.36 IU/mL (0.30-0.70) Prothrombin Time 25.9 SEC (11.7-14.0) Prothromb Time International Ratio 2.4 (0.8-1.1) Sodium Level 134 mmol/L (136-145) Potassium Level 4.2 mmol/L (3.5-5.1) Chloride Level 98 mmol/L (98-107) Carbon Dioxide Level 26 mmol/L (21-32) Anion Gap 10 (6-14) Blood Urea Nitrogen 19 mg/dL (8-26) Creatinine 1.4 mg/dL (0.7-1.3) Estimated GFR (Cockcroft-Gault) 51.4 Glucose Level 200 mg/dL (70-99) Calcium Level 8.4 mg/dL (8.5-10.1) Test 09/21/19 07:43 09/21/19 11:27 Glucose (Fingerstick) 174 mg/dL (70-99) 176 mg/dL (70-99) Microbiology Micro Microbiology 09/18/19 Urine Culture - Final, Complete Physical Exam HEENT: Neck Supple W Full Motion Chest: Symmetric LUNGS: Clear to Auscultation Heart: irregularly irregular (AFIB rate controlled) Abdomen: Soft N/T, Other (obese) Extremities: Other (2-3+ bilateral LE pitting edema) Neurology: alert, oriented, follow commands Assessment Assessment 1. Acute extensive bilateral DVT: no phlegmasia but notable for subtherapeutic INR due to diet noncompliance. 2. Chronic venous insufficiency with sedentary lifestyle due to poor mobility 3. Abdominal pain/right groin pain with opioid induced constipation 4. Chronic AFIB rate controlled 5. PPM in situ: [facility] [facility] 6. HTN: controlled 7. HLP 8. Morbid obesity 9. Hx of very old IVC filter 10. Tobaccoism Recommendations 1. Continue coreg and cardizem 2. INR at 2.4. Continue with warfarin 3. Dietitian and pharmacy consult for diet modification. 4. Will provide referral to hematology in regards to anticoagulation as an outpt in a tertiary care facility to further options for VTE treatment given past difficulty for INR stabilization and potential referral to specialist for IVC retrieval. 5. Smoking cessation 6. Follow up Nov [address] Sierra Justicifation of Admission Dx: Justifications for Admission: Justification of Admission Dx: Yes LALITHA SIERRA MD 09/21/19 1730: CARDIO Progress Notes Assessment Assessment Patient seen and examined Discussed with our nurse practitioner I agree with his assessment and plan. Acute extensive bilateral DVT: no phlegmasia but notable for subtherapeutic INR due to diet noncompliance. Continuing on warfarin with INR now at 2.4. Will refer to hematology for possible other options for anticoagulation and in the setting of his IVC. Chronic venous insufficiency with sedentary lifestyle due to poor mobility Abdominal pain/right groin pain with opioid induced constipation Chronic AFIB rate controlled. Anticoagulation as above PPM in situ: [facility] [facility] Morbid obesity DORIS GROVES APRN Sep 21, 2019 11:55 LALITHA SIERRA MD Sep 21, 2019 17:30
--- NOTE | 2019-09-21 12:06 | SNU/HH DC ---
DISCHARGE WITH HOME HEALTH DISCHARGE INFORMATION: Final Diagnosis: Problems Medical Problems: (1) DVT, bilateral lower limbs Status: Acute Condition on Discharge: Stable CODE STATUS: Code Status: Full HOME HEALTH: Face to Face: I certify this patient is under my care and that I, or a nurse practitioner or arlene akers's prosthetics assistant working with me, had a face to face encounter that meets the physician face to face encounter requirements with this patient on []. Medical Complications: Other (Chronic anticoagulation, debility) Snf For: Assess & Educate Safety RN For Eval/Treatment: Yes Physical Therapy For: Evalulation/Treatment Occupational Therapy For: Evaluation/Treatment Home Health Aide For: Self-care LACE MENDER For: Community Resources Pt Meets Homebound Status: Poor coordination w/ amb. POST DISCHARGE ORDERS: Activity Instructions for Disc: Activity as tolerated Weight Bearing Status after Di: As tolerated Bathing Instructions: Shower-keep dressing dry DIET AFTER DISCHARGE: Cardiac Wound/Incision Care: No wound care needed CHECKS AFTER DISCHARGE: Checks after discharge: Check blood press - daily, Check blood sugar, ac/hs, Check your Temp as needed, Weigh Yourself Daily FOLLOW-UP: Follow up with: Dr. Hernandez per appointment Follow Up With: Primary care provider in 1-2 weeks TREATMENT/EQUIPMENT ORDERS: Adaptive Equipment Issued: None CERTIFICATION STATEMENT: Certification Statement: Certification Statement: Based on the above finding, I certify that this patient is confined to the home and needs intermittent correction care, physical therapy and/or speech therapy, or continues to need occupational therapy.~ This patient is under my care, and I have initiated the establishment of the plan of care.~ This patient will be followed by myself or a community physician who will periodically review the plan of care. Home Meds Active Scripts Benzonatate (TESSALON PERLE) 100 Mg Capsule, 100 MG PO TID PRN for COUGH, #20 CAP Prov:ANAID DONOVAN DO 09/02/19 Prednisone (PREDNISONE) 20 Mg Tablet, 2 TAB PO DAILY, #8 TAB Start this prescription tomorrow, Wednesday09/03/19 Prov:ANAID DONOVAN DO 09/02/19 Azithromycin (ZITHROMAX) 250 Mg Tablet, 1 PKG PO UD for bronchitis, #6 TAB Take 2 tablets on day 1 and then 1 tablet each day for the next 4 days as directed Prov:ANAID DONOVAN DO 09/02/19 Reported Medications Warfarin Sodium (WARFARIN SODIUM) 2.5 Mg Tablet, 2.5 MG PO QSU for blood thinner, TAB 09/18/19 Warfarin Sodium (WARFARIN SODIUM) 5 Mg Tablet, 5 MG PO QM for blood thinner, #30 TAB 09/18/19 Varenicline Tartrate (CHANTIX) 1 Mg Tablet, 1 MG PO DAILY for smoking cessation, TAB 09/18/19 Hydrocodone Bit/Acetaminophen (HYDROCODONE-APAP 7.5-325 ) 1 Tab Tablet, 1 TAB PO Q8HRS PRN for PAIN, TAB 0 Refills 09/18/19 Ergocalciferol (Vitamin D2) (Vitamin D2) 50 Mcg Tablet, 14083 INTLU PO QMONTH PRN for supplement, TAB 09/18/19 Tramadol Hcl (TRAMADOL HCL) 50 Mg Tablet, 50 MG PO Q6HRS PRN for PAIN, TAB 0 Refills 09/18/19 Gabapentin (GABAPENTIN ) 100 Mg Capsule, 200 MG PO BID for NEUROGENIC PAIN, CAP 09/18/19 Carvedilol (CARVEDILOL ) 12.5 Mg Tablet, 1 TAB PO BID, #180 TAB 1 Refill 06/29/16 Losartan Potassium (LOSARTAN POTASSIUM) 50 Mg Tablet, 50 MG PO DAILY, TAB 06/29/16 Diltiazem Hcl (DILTIAZEM 24HR CD) 180 Mg Cap.er.24h, 1 CAP PO BID for CHF, #30 CAP 5 Refills 06/29/16 Albuterol Sulfate (PROVENTIL HFA INHALER) 6.7 Gm Hfa.aer.ad, 2 PUFF IH DAILY PRN for SHORTNESS OF BREATH, INHALER 0 Refills 06/29/16 Docusate Sodium (DOC-Q-LACE) 100 Mg Capsule, 100 MG PO DAILY PRN for CONSTIPATION 06/29/16 Ranitidine Hcl (ZANTAC) 150 Mg Tablet, 1 TAB PO DAILY, #60 TAB 3 Refills 06/29/16 Lorazepam (LORAZEPAM) 1 Mg Tablet, 2 MG PO HS for anxiety, #60 TAB 06/29/16 Allopurinol (ALLOPURINOL) 100 Mg Tablet, 1 TAB PO DAILY, #30 TAB 5 Refills 06/29/16 Discontinued Reported Medications Potassium Chloride (KLOR-CON M20) 20 Meq Tab.er.prt, 1 TAB PO 3X/WEEK, #90 TAB 1 Refill 06/29/16 Furosemide (FUROSEMIDE) 20 Mg Tablet, 1 TAB PO 3X/WEEK, #90 TAB 1 Refill 06/29/16 Warfarin Sodium (WARFARIN SODIUM) 10 Mg Tablet, 10 MG PO WEEKLY for 5 Days, TAB 06/29/16 Warfarin Sodium (WARFARIN SODIUM) 5 Mg Tablet, 1 TAB PO TWICE WEEKLY, #90 TAB 1 Refill 06/29/16 NEHEMIAH ROBBINS III DO Sep 21, 2019 12:06
--- NOTE | 2019-09-21 12:23 | NUR ---
Pt left unit by wheelchair via private vehicle at approx 1223. Pt accompanied by . Pt's IV removed, VSS. Lunch dose of insulin not administered as pt did not eat lunch before he left. Discharge paperwork discussed with pt and .
--- NOTE | 2019-09-21 14:00 | NUR ---
SW following. Reviewed chart and spoke with Dr. Pozo. Pt to discharge today with [facility], , (fax). JULIO phoned and faxed discharge orders. Pt to discharge home on oral medications. Pt has home 02. No further SW needs at this time.
--- NOTE | 2019-09-22 14:00 | DS ---
DATE OF DISCHARGE: 09/21/2019 ADMISSION DIAGNOSIS: Lower extremity deep venous thrombosis. DISCHARGE DIAGNOSES: Chronic lower extremity deep venous thromboses, history of extensive previous deep venous thromboses and so he has an IVC filter that has been in for 29 years. HOSPITAL COURSE: The patient is a pleasant 64-year-old male who presented with lower extremity swelling, was positive for bilateral lower extremity DVTs. He has an old IVC filter that was 29 years old. We were concerned it might be clotted off. We admitted the patient. We adjusted his Coumadin because his INR was only 1.6 when he came in. We consulted Interventional Radiology. I spoke with Dr. Ferrera and he did give a consultation. The patient feels that the IVC filter is not something we can remove. It is pretty much calcified in there, but there is blood flow around it. Basically, the patient did well. We got his INR up above to fact he was at 2.4 yesterday. Heart tones are normal. Lungs were clear. We discharged to home with home health. DISPOSITION: Home with home health. ACTIVITY: As tolerated. DIET: Low sodium. MEDICATIONS: Please see the MRAD. TOTAL TIME: 34 minutes. NEHEMIAH ROBBINS DO DR: MONTSE/melissa JOB#: [id number] / [id number]
== END 2019-09-21 12:29 | disposition home or self-care (01) | DRG 299 ==
LOC: ER 11:45 → ED HOLD 16:30 → 6 SOUTH 18:38
PROVIDERS: ADMIT Internal Medicine; ATTEND Internal Medicine
DX: I82.403 Acute embolism and thrombosis of unspecified deep veins of lower extremity, bilateral (principal); N17.0 Acute kidney failure with tubular necrosis; Z68.41 Body mass index [BMI] 40.0-44.9, adult; I48.20 Chronic atrial fibrillation, unspecified; E87.1 Hypo-osmolality and hyponatremia; N12 Tubulo-interstitial nephritis, not specified as acute or chronic; E66.01 Morbid (severe) obesity due to excess calories; E78.5 Hyperlipidemia, unspecified; E86.1 Hypovolemia; F17.210 Nicotine dependence, cigarettes, uncomplicated; I44.0 Atrioventricular block, first degree; J44.9 Chronic obstructive pulmonary disease, unspecified; K59.03 Drug induced constipation; T40.2X5A Adverse effect of other opioids, initial encounter; Y92.89 Other specified places as the place of occurrence of the external cause; Z79.01 Long term (current) use of anticoagulants; Z82.49 Family history of ischemic heart disease and other diseases of the circulatory system; Z90.49 Acquired absence of other specified parts of digestive tract; Z91.11 Patient's noncompliance with dietary regimen; Z95.0 Presence of cardiac pacemaker; Z95.828 Presence of other vascular implants and grafts; M10.9 Gout, unspecified; M19.90 Unspecified osteoarthritis, unspecified site; I50.9 Heart failure, unspecified; I11.0 Hypertensive heart disease with heart failure; E87.5 Hyperkalemia
CPT/HCPCS: 36415; 71045; 74176; 80048; 80076; 81001; 82962; 83036; 83690; 83735; 83880; 84484; 85007; 85025; 85027; 85520; 85610; 85730; 87086; 93005; 93970; 94640; 96374; 96375; 99285; J0696; J1644; J1815; J2060; J2405; J3010; J7030; G0378; J7613

== ENCOUNTER → 2019-12-07 | Outpatient (CLI) | payer MEDICARE, BC ==
[~2019-12-07] MED LIST changes: +ERGO2000 PO; +GABA-585 PO; +HYDR-2765 PO; +TRAM50TA PO; +VARE1TAB21 PO; +WARF2.5T71 PO
--- NOTE | 2019-12-07 11:09 | KCIC ---
Bilateral lower extremity venous doppler ultrasound History: Extensive DVT bilaterally previously Comparison: September 18, 2019 Findings: Multiple grayscale, color, and duplex spectral analysis sonographic images were acquired of the bilateral lower extremity veins to evaluate for the presence of DVT. There is residual abnormal echogenicity in the right lower extremity veins although somewhat decreased. There is now some color flow present in the common femoral, distal superficial femoral, and popliteal veins and segments of the calf veins. There is persistent occlusive thrombus of the proximal and mid right superficial femoral vein. On the left, there is again residual nonocclusive echogenicity in the superficial femoral vein and popliteal vein. Impression: 1. There is persistent prominent thrombus of the right lower extremity veins although slightly decreased, now some color flow in segments of the veins as stated although residual occlusive thrombus of the proximal and mid right superficial femoral vein. There is residual nonocclusive thrombus of the left lower extremity veins extending from superficial femoral vein to the popliteal vein. Electronically signed by: Norbert Molina MD (12/07/2019 11:06 AM) [id number]
== END | disposition home or self-care (01) ==
LOC: KCIC US 09:19
PROVIDERS: ATTEND Family Medicine
DX: I82.493 Acute embolism and thrombosis of other specified deep vein of lower extremity, bilateral (principal)
CPT/HCPCS: 93970

== ENCOUNTER → 2020-12-18 | Outpatient (CLI) | payer MEDICARE, BC ==
[~2020-12-18] MED LIST changes: +POTA-121 PO; -POTA20TA4 PO
--- NOTE | 2020-12-18 13:03 | CARD ---
MR#: [id number] Date of Study: 12/18/2020 Ordering Physician: LALITHA BLAKE, Referring Physician: LALITHA BLAKE, Tech: Ericka Amado, [facility] APPROVED REPORT EXAM: Two-dimensional and M-mode echocardiogram with Doppler and color Doppler. Other Information Quality : Average INDICATION COPD Dyspnea Surgery/Intervention ICD/Pacemaker: RISK FACTORS Hypertension Hyperlipidemia Smoking 2D DIMENSIONS RVDd3.5 (2.9-3.5cm)Left Atrium(2D)4.4 (1.6-4.0cm) IVSd0.9 (0.7-1.1cm)Aortic Root(2D)3.4 (2.0-3.7cm) LVDd5.9 (3.9-5.9cm)LVOT Diameter2.1 (1.8-2.4cm) PWd1.1 (0.7-1.1cm)LVDs4.3 (2.5-4.0cm) FS (%) 26.6 %SV87.6 ml LVEF(%)51.2 (>50%) Aortic Valve AoV Peak James.155.2cm/sAoV VTI32.1cm AO Peak GR.9.6mmHgLVOT Peak James.97.8cm/s LVOT VTI 21.41cmAO Mean GR.5mmHg RAIMUNDO (VMAX)1.93ej4ZYI (VTI)2.31cm2 Mitral Valve MV E Yvikbtcx253.2cm/sMV DECEL [id number] MV A Rhohwffq79.3cm/sMV E Mean Gr.1mmHg MV IZP91asS/A Ratio3.2 MVA (PHT)3.88cm2 TDI E/Lateral E'7.8E/Medial E'10.3 Pulmonary Valve PV Peak Zivdjyhv44.0cm/sPV Peak Grad.4mmHg Tricuspid Valve TR P. Otjyghez620ft/sRAP [id number] TR Peak Gr.45bkYrKQYJ99zlQt LEFT VENTRICLE The left ventricle is normal size. There is normal left ventricular wall thickness. The left ventricu lar systolic function is mildly diminished. EF 45-50% Wall motion consistent with pacemaker activatio n. There is mild global hypokinesis. Tissue Doppler imaging reveals moderate left ventricular diastol ic dysfunction. RIGHT VENTRICLE The right ventricle is borderline dilated. There is normal right ventricular wall thickness. The righ t ventricular systolic function is normal. ATRIA The left atrium is borderline dilated. The right atrium is mildly dilated. The interatrial septum is intact with no evidence for an atrial septal defect or patent foramen ovale as noted on 2-D or Dopple r imaging. AORTIC VALVE The aortic valve is mildly thickened. Doppler and Color Flow revealed no significant aortic regurgita tion. There is no significant aortic valvular stenosis. Calculated aortic valve area is 2.48 cm2 with maximum pressure gradient of 10 mmHg and mean pressure gradient of 6 mmHg. MITRAL VALVE The mitral valve is normal in structure and function. There is no evidence of mitral valve prolapse. There is no mitral valve stenosis. Doppler and Color-flow revealed trace mitral regurgitation. TRICUSPID VALVE The tricuspid valve is normal in structure and function. Doppler and Color Flow revealed trace tricus pid regurgitation with an estimated PAP of 27 mmHg. There is no tricuspid valve stenosis. PULMONIC VALVE Doppler and Color Flow revealed trace pulmonic valvular regurgitation. There is no pulmonic valvular stenosis. GREAT VESSELS The aortic root is normal in size. The IVC is normal in size and collapses >50% with inspiration. PERICARDIAL EFFUSION There is no evidence of significant pericardial effusion. Critical Notification Critical Value: No <Conclusion> The left ventricular systolic function is mildly diminished. EF 45-50% Wall motion consistent with pacemaker activation. There is mild global hypokinesis. Signed by : Andrade Leach, Electronically Approved : 12/18/2020 13:02:54
--- NOTE | 2020-12-19 08:15 | RAD ---
MR#: [id number] Date of Study: 12/18/2020 Ordering Physician: LALITHA BLAKE, Referring Physician: LALITHA BLAKE, Tech: Josué Castañeda MBA, RDMS, RVT, RDCS, RTR APPROVED REPORT Patient Location : OUT-PATIENT Indications Lower Extremity Edema : Bilateral Deep System Deep Venous Thrombosis present : Yes Greater Saphenous Veins (GSV) Significant venous relux noted in the RIGHT GSV at the following levels : Superficial Femoral Junctio n, Proximal Thigh, Mid Thigh, Distal Thigh, Proximal Calf, Mid Calf, Distal Calf Lesser Saphenous Veins (LSV) Significant venous reflux is noted in the Right LSV. Findings The right great saphenous vein measures 8 mm and has a maximum reflux time of 2.3 seconds. The left great saphenous vein measures 10 mm and has no evidence of reflux. The right lesser saphenous vein measures 2 mm and has a maximum reflux time of 1.2 seconds. The left lesser saphenous vein does not show any evidence of reflux. There are multiple advertising consultant v eins noted although no clear evidence of reflux is noted. Critical Notification Critical Value: No <Conclusion> 1. Positive for reflux in the right greater and lesser saphenous veins. 2. Please see DVT scan report for further details. Signed by : Andrade Leach, Electronically Approved : 12/19/2020 08:14:21
--- NOTE | 2020-12-19 08:17 | RAD ---
MR#: [id number] Date of Study: 12/18/2020 Ordering Physician: LALITHA BLAKE, Referring Physician: LALITHA BLAKE, Tech: Josué Castañeda MBA, RDMS, RVT, RDCS, RTR APPROVED REPORT Bilateral Lower Extremity Venous Study for DVT Patient Location: OUT-PATIENT Indications Lower Extremity Edema: Bilateral HX OF DVT. PT ON BLOOD THINNER AND HAS IVC FILTER. Vein Imaging (Right) CFV (R): Partially Compressible SFJ (R): Compressible FEM (R): Compressible POP (R): Compressible DFV (R): Compressible PTV (R): Spontaneous GSV (R): Spontaneous Vein Imaging (Left) CFV (L): Compressible SFJ (L): Compressible FEM (L): Non-Compressible POP (L): Compressible DFV (L): Compressible PTV (L): Spontaneous GSV (L): Spontaneous Doppler Evaluation (Right) CFV (R): Non-Occlusive Thrombus POP (R):Spontaneous Doppler Evaluation (Left) CFV (L):Spontaneous POP (L):Spontaneous Findings Grayscale images of the bilateral deep veins were limited due to body habitus. The right common femoral vein demonstrates nonocclusive chronic thrombus extending into the proximal half of the superficial femoral vein. The popliteal vein is not well visualized but grossly appears to be compressible. Below-knee veins were not well visualized. On the left side there is nonocclusive thrombus noted in the superficial femoral vein. The below-kne e veins were not well visualized. Critical Notification Critical Value: No <Conclusion> 1. Probable chronic nonocclusive thrombus in the right common femoral and left superficial femoral v eins. Signed by : Andrade Leach, Electronically Approved : 12/19/2020 08:16:34
== END ==
LOC: ECHO 10:44
PROVIDERS: ATTEND Internal Medicine Cardiovascular Disease
DX: I82.493 Acute embolism and thrombosis of other specified deep vein of lower extremity, bilateral (principal); R06.02 Shortness of breath; R60.0 Localized edema
CPT/HCPCS: 93306; 93970